=== PATIENT | male | born 1960 | race Caucasian/White ===

== ENCOUNTER → 2017-02-17 | Outpatient (REF) | payer BC ==
[~2017-02-17] MED LIST: ASPI81TA60 PO; CIPR-250 PO; DAKI1SOL TOP; FURO40TA2 PO; GLUC500T PO; KLOR1POW2 PO; LIPI20TA PO; LOSA25TA8 PO; NORCOTAB PO; TYLE650T30 PO; unasom PO
== END ==
LOC: M LAB REF 09:08
PROVIDERS: ATTEND Podiatrist
DX: L97.512 Non-pressure chronic ulcer of other part of right foot with fat layer exposed (principal)

== ENCOUNTER → 2017-03-29 | Outpatient (REF) | payer BC | LOC: M LAB REF 17:45 | PROVIDERS: ATTEND Podiatrist | DX: E11.42 Type 2 diabetes mellitus with diabetic polyneuropathy (principal); E11.621 Type 2 diabetes mellitus with foot ulcer; L97.819 Non-pressure chronic ulcer of other part of right lower leg with unspecified severity ==

== ENCOUNTER → 2017-03-30 | Outpatient (CLI) | payer BC ==
[2017-03-30 10:32] LABS: MEAN CORPUSCULAR HEMOGLOBIN 32.2 pg (27.0-33.0); MEAN CORPUSCULAR HGB CONC 34.4 g/dl (32.0-36.5); MEAN CORPUSCULAR VOLUME 93.7 fl (80.0-96.0); RED CELL DISTRIBUTION WIDTH 13.2 % (11.5-14.5); WHITE BLOOD COUNT 9.3 K/mm3 (4.0-10.0)
[2017-03-30 12:12] LABS: ALBUMIN 3.5 GM/DL (3.2-5.2); ALBUMIN/GLOBULIN RATIO 1.03 (1.00-1.93); ALKALINE PHOSPHATASE 91 U/L (45-117); ALT/SGPT 31 U/L (12-78); ANION GAP 8 MEQ/L (8-16); AST/SGOT 16 U/L (15-37); BILIRUBIN,TOTAL 0.5 MG/DL (0.2-1.0); BLOOD UREA NITROGEN 6 MG/DL (7-18); CALCIUM LEVEL 8.8 MG/DL (8.5-10.1); CARBON DIOXIDE LEVEL 27 MEQ/L (21-32); CHLORIDE LEVEL 103 MEQ/L (98-107); CHOLESTEROL LEVEL 174 MG/DL (<200); CREATININE FOR GFR 0.64 MG/DL (0.70-1.30); GLOMERULAR FILTRATION RATE > 60.0 (>56); GLUCOSE, FASTING 98 MG/DL (70-105); POTASSIUM SERUM 4.3 MEQ/L (3.5-5.1); SODIUM LEVEL 138 MEQ/L (136-145); TOTAL PROTEIN 6.9 GM/DL (6.4-8.2); TRIGLYCERIDES LEVEL 100 MG/DL (<150)
--- NOTE | 2017-03-31 02:20 | REP ---
Clinical: Hypertension . Comparison: 05/08/2013 . Technique: PA and lateral. Findings: The mediastinum and cardiac silhouette are normal. The lung murphy are clear and without acute consolidation, effusion, or pneumothorax. The skeletal structures are intact and normal. Impression: 1. No acute cardiopulmonary process. Signed by Anupam Savage MD 03/31/2017 02:11 A
--- NOTE | 2017-04-01 00:48 | ECGEPIP ---
Stationary ECG Study [facility] Test Date: 2017-03-30 Pat Name: JOHN CARRENO Department: Room: - Gender: M Video Specialist: GILL : 1960 Requested By: Lyle Damon Order Number: [id number] Reading MD: Sam Manzanares Measurements Intervals [place] Rate: 84 P: MD: 0 QRS: 79 QRSD: 104 T: 45 QT: 404 QTc: 479 Interpretive Statements ATRIAL FIBRILLATION WITH ABERRANT CONDUCTION OR VENTRICULAR PREMATURE COMPLEXES ABNORMAL RHYTHM ECG Compared to the last 2 tracings in the system, no significant changes Electronically Signed On 04-01-2017 0:48:45 EDT by Sam Manzanares
== END ==
LOC: M LAB 09:20
PROVIDERS: ATTEND Family Medicine
DX: I10 Essential (primary) hypertension (principal); N40.0 Benign prostatic hyperplasia without lower urinary tract symptoms; E03.9 Hypothyroidism, unspecified; R94.31 Abnormal electrocardiogram [ECG] [EKG]

== ENCOUNTER 2017-05-14 12:34 | Day surgery (SDC) | payer BC ==
[2017-05-14] MEDS ORDERED: PROPOFOL 200 MG/20 ML VIAL As Ordered ONE (13:13)
[2017-05-14] MEDS ORDERED: LIDOCAINE 2% INJ 100 MG/5 ML SDV (FOR ANES.) As Ordered ONE (13:13)
[2017-05-14] MEDS ORDERED: MIDAZOLAM INJ 2 MG/2 ML VIAL (J2250) As Ordered ONE (13:13)
[2017-05-14] MEDS ORDERED: fentaNYL 100 MCG/2 ML INJECTION (J3010) As Ordered ONE (13:14)
[2017-05-14] MEDS ORDERED: PRAV40TA2 PO (13:25)
[2017-05-14] MEDS ORDERED: SILV50CR TOP (13:25)
[2017-05-14] MEDS ORDERED: MELO7.5T7 PO (13:25)
[2017-05-14] MEDS ORDERED: ELIQ5TAB PO (13:25)
[2017-05-14] MEDS ORDERED: POTA1TAB21 PO (13:25)
[2017-05-14] MEDS ORDERED: METF500T13 PO (13:25)
[2017-05-14 13:27] LABS: MEAN CORPUSCULAR HEMOGLOBIN 32.2 pg (27.0-33.0); MEAN CORPUSCULAR HGB CONC 34.4 g/dl (32.0-36.5); MEAN CORPUSCULAR VOLUME 93.7 fl (80.0-96.0); RED CELL DISTRIBUTION WIDTH 13.6 % (11.5-14.5); WHITE BLOOD COUNT 10.9 K/mm3 (4.0-10.0)
[2017-05-14] MEDS ORDERED: AUGM875T28 PO (13:32)
[2017-05-14 13:41] LABS: ANION GAP 9 MEQ/L (8-16); BLOOD UREA NITROGEN 11 MG/DL (7-18); CALCIUM LEVEL 9.4 MG/DL (8.5-10.1); CARBON DIOXIDE LEVEL 25 MEQ/L (21-32); CHLORIDE LEVEL 106 MEQ/L (98-107); GLOMERULAR FILTRATION RATE > 60.0 (>56); GLUCOSE, FASTING 102 MG/DL (70-105); POTASSIUM SERUM 4.2 MEQ/L (3.5-5.1); SODIUM LEVEL 140 MEQ/L (136-145)
[2017-05-14] MEDS ORDERED: LIDOCAINE 2% MDV 20 ML VIAL As Ordered ONE (14:16)
[2017-05-14] MEDS ORDERED: ROPIvacaine 0.5% 30 ML INJECTION (J2795) As Ordered ONE (14:16)
[2017-05-14] MEDS ORDERED: BACITRACIN PWD 50,000 UNITS VIAL As Ordered ONE (14:16)
[2017-05-14] MEDS ORDERED: NEOSPORIN GU IRRIG 20 ML VIAL As Ordered ONE (14:17)
[2017-05-14] MEDS ORDERED: VANCOMYCIN HCL 500 MG/10 ML VIAL (J3370) As Ordered ONE (14:46)
[2017-05-14] MEDS ORDERED: ONDANSETRON 4MG/2ML VIAL (J2405) As Ordered ONE (14:51)
[2017-05-14] MEDS ORDERED: PERCOCET 5MG/325MG TAB PO PRN (15:45)
[2017-05-14 16:05] VITALS: BP 132/88
--- NOTE | 2017-05-14 17:00 | REP ---
HISTORY: Followup. COMPARISON: 03/22/2014 Since the last examination, amputation of the 2nd digit has been performed from the mid proximal phalanx. Chronic changes are seen involving the right foot, which are stable from the prior exam. There is a plantar calcaneal heel spur, status quo. The edge of the surgerized proximal phalanx is smooth. There is expected postoperative soft tissue swelling. IMPRESSION: As above. Signed by Cam Day DO 05/19/2017 04:24 P
--- NOTE | 2017-05-16 11:19 | RO ---
DATE OF PROCEDURE: 05/14/2017 PREPROCEDURE DIAGNOSIS: Osteomyelitis second toe right foot. POSTPROCEDURE DIAGNOSIS: Osteomyelitis second toe right foot. PROCEDURE: Partial second toe amputation right foot. SURGEON: Ross Garcia DPM PARTS DEPARTMENT SUPERVISOR: None. ANESTHESIA: HEMOSTASIS: None. IMPLANTABLES: None. DESCRIPTION OF PROCEDURE: On 05/14/2017, this 56-year-old male was taken from his hospital room to the operating room and placed on the operating room table in a supine position. Following the induction of IV sedation, local and regional anesthesia, the right lower extremity was prepped and draped in the usual aseptic manner. Attention was directed to the patient's second toe of the right foot where there was noted to be a significant mallet toe deformity with an ulcer with exposed bone on the distal aspect of the second toe. At this time, a fish mouth incision was placed over the proximal interphalangeal joint of the second toe and the toe was disarticulated. Exposure was down to the proximal phalanx and utilizing a power saw an osteotomy was performed at the shaft of the proximal phalanx. This was removed. All bleeders were electrocoagulated as encountered. The wound was flushed with 1 liter of vancomycin solution and the toe was closed with #3-0 nylon suture in a simple interrupted type fashion. Attention was directed towards bandaging where a sterile compressive bandage was applied consisting of Adaptic, 4x4s, 4x4 splints, Ez, Kerlix and Coban. The patient having apparently tolerated the surgical procedure well was taken from the OR to the recovery room with vital signs stable and the patient afebrile for further monitoring by the anesthesia department. All surgical specimens removed during the operative procedure were sent to pathology for gross and microscopic examination and a bone culture was performed of the distal phalanx.
== END 2017-05-14 16:10 | disposition home or self-care (01) ==
LOC: M SDC 12:34
PROVIDERS: ATTEND Podiatrist
DX: M86.9 Osteomyelitis, unspecified (principal); I10 Essential (primary) hypertension; E78.4 Other hyperlipidemia; E11.9 Type 2 diabetes mellitus without complications; E66.9 Obesity, unspecified; I48.91 Unspecified atrial fibrillation; I73.9 Peripheral vascular disease, unspecified
CPT/HCPCS: 28825; 36415; 73630; 80048; 85027; 87070; 87075; 87077; 87186; 88305; J0690; J2250; J2405; J2795; J3010; J3370

== ENCOUNTER → 2017-06-25 | Outpatient (REF) | payer BC ==
[~2017-06-25] MED LIST changes: +AUGM875T28 PO; +ELIQ5TAB PO; +MELO7.5T7 PO; +METF500T13 PO; +POTA1TAB21 PO; +PRAV40TA2 PO; +SILV50CR TOP
[2017-06-25 16:35] LABS: MEAN CORPUSCULAR HEMOGLOBIN 31.5 pg (27.0-33.0); MEAN CORPUSCULAR HGB CONC 33.3 g/dl (32.0-36.5); MEAN CORPUSCULAR VOLUME 94.4 fl (80.0-96.0); WHITE BLOOD COUNT 8.8 K/mm3 (4.0-10.0)
[2017-06-25 17:27] LABS: ANION GAP 9 MEQ/L (8-16); BLOOD UREA NITROGEN 11 MG/DL (7-18); CALCIUM LEVEL 9.3 MG/DL (8.5-10.1); CARBON DIOXIDE LEVEL 28 MEQ/L (21-32); CHLORIDE LEVEL 97 MEQ/L (98-107); CREATININE FOR GFR 0.84 MG/DL (0.70-1.30); GLOMERULAR FILTRATION RATE > 60.0 (>56); GLUCOSE, FASTING 79 MG/DL (70-105); SODIUM LEVEL 134 MEQ/L (136-145)
== END ==
LOC: M LAB REF 16:15
PROVIDERS: ATTEND Surgery
DX: E11.621 Type 2 diabetes mellitus with foot ulcer (principal); L97.422 Non-pressure chronic ulcer of left heel and midfoot with fat layer exposed

== ENCOUNTER → 2017-07-29 | Outpatient (CLI) | payer BC ==
[~2017-07-29] MED LIST changes: +PROHANCE 279.3MG/ML 15ML VIAL (A9576) As Ordered ONE; +PROHANCE 279.3MG/ML 5ML VIAL (A9576) As Ordered ONE
--- NOTE | 2017-08-06 17:02 | REP ---
MRI BILATERAL FEET WITH AND WITHOUT CONTRAST: TECHNIQUE: Multiple sequence obtained in the axial, coronal, and sagittal planes prior to and following the intravenous administration of 20 mL of gadolinium, first on 07/29/2017 for the right foot and then 07/30/2017 for the left foot. The study is presented to me for interpretation on 08/06/2017. Edema is seen in the soft-tissues of the right heel with enhancement compatible with cellulitis. There is no underlying abscess collection. There is no underlying osteomyelitis. There are arthritic changes of the tibiotalar joint with subchondral marrow edema predominately at the posterior aspect of the joint. Arthritic changes and subchondral marrow edema is also seen at the joint between the navicular and adjacent medial cuneiform and also between the cuboid and adjacent bases of the 4th and 5th metatarsals. No occult fracture is seen of the right foot. Mild joint fluid is seen at the ankle. Plantar tendon appears intact. I do not see evidence of a tendon or ligament tear. There is an oval area in the region of the flexor tendon of the 2nd metatarsal which is hypointense on T1 and T2 weighted images and does not significantly enhance. This measures approximately 2.1 x 0.9 cm and probably represents a fibroma along the tendon sheath. There is mild surrounding enhancement likely indicating inflammatory change and surrounding tissues. On the left there is similar edema in soft tissues adjacent to the inferior calcaneus at the site of a reported ulcer. There is also mild enhancement compatible with cellulitis. There is no underlying abscess collection or osteomyelitis. There are arthritic changes at the tibiotalar joint with subchondral marrow edema at the posterior margin of the joint and similarly arthritic changes and subchondral marrow edema is seen at the calcaneal cuboid joint as well as the joint between the cuboid and base of the 4th metatarsal as well as at the other tarsal/metatarsal joints and at the joint between the navicular and medial cuneiform. Oval cyst in the first metatarsal is unchanged since prior MRI of 04/16/2014. There is no occult fracture. There is no joint effusion or fluid collection. No ganglion cyst is seen. There is no evidence of a tendon or ligament tear. IMPRESSION: Soft tissue ulcers at the heels bilaterally with findings of cellulitis. No underlying abscess or osteomyelitis. There are arthritic changes in both feet as discussed above with no evidence of occult fracture and no evidence of tendon or ligament tear. Signed by Claus Boudreaux MD 08/06/2017 05:54 P
== END ==
LOC: M RAD 12:36
PROVIDERS: ATTEND Surgery
DX: E11.621 Type 2 diabetes mellitus with foot ulcer (principal); L97.412 Non-pressure chronic ulcer of right heel and midfoot with fat layer exposed; L97.422 Non-pressure chronic ulcer of left heel and midfoot with fat layer exposed

== ENCOUNTER → 2017-09-17 | Outpatient (REF) | payer BC ==
[~2017-09-17] MED LIST changes: -PROHANCE 279.3MG/ML 15ML VIAL (A9576) As Ordered ONE; -PROHANCE 279.3MG/ML 5ML VIAL (A9576) As Ordered ONE
== END ==
LOC: M LAB REF 16:44
PROVIDERS: ATTEND Surgery
DX: E11.621 Type 2 diabetes mellitus with foot ulcer (principal); L97.409 Non-pressure chronic ulcer of unspecified heel and midfoot with unspecified severity

== ENCOUNTER → 2018-12-28 | Outpatient (CLI) | payer BC ==
[~2018-12-28] MED LIST changes: +LOSA25TA14 PO; -LOSA25TA8 PO
--- NOTE | 2018-12-29 02:45 | REP ---
Clinical: Pain. Technique: Neutral and frog lateral views of the left hip. Findings: Advanced osteoarthritic degenerative changes include joint space obliteration, subchondral heterogeneity and cystic changes, obtuse remodelling of the acetabular contour and femoral head along with broad-based osteophyte formation and periarticular calcifications. Impression: Advanced osteoarthritic degenerative changes. Electronically Signed by Anupam Savage MD 12/29/2018 02:37 A
== END ==
LOC: M RAD 09:01
PROVIDERS: ATTEND Family Medicine
DX: M25.552 Pain in left hip (principal); M16.12 Unilateral primary osteoarthritis, left hip

== ENCOUNTER → 2019-03-07 | Outpatient (CLI) | payer BC ==
[~2019-03-07] MED LIST changes: +ASPI81TA26 PO; +HYDR-3715 PO; +MOBI4TAB PO; -NORCOTAB PO
[2019-03-07 10:51] LABS: HEMATOCRIT 41.9 % (42.0-52.0); HEMOGLOBIN 14.7 g/dl (13.5-17.5); MEAN CORPUSCULAR HGB CONC 35.1 g/dl (32.0-36.5); MEAN CORPUSCULAR VOLUME 93.9 fl (80.0-96.0); PLATELET COUNT, AUTOMATED 256 10^3/uL (150-450); RED BLOOD COUNT 4.46 10^6/uL (4.30-6.10); WHITE BLOOD COUNT 8.2 10^3/uL (4.0-10.0)
[2019-03-07 10:52] LABS: APPEARANCE, URINE CLEAR (CLEAR); BACTERIA, URINE AUTO NEGATIVE (NEGATIVE); BILIRUBIN, URINE AUTO NEGATIVE (NEGATIVE); BLOOD, URINE BLOOD 1+ (NEGATIVE); COLOR, URINE YELLOW (YELLOW); GLUCOSE, URINE (UA) AUTO NEGATIVE (NEGATIVE); KETONE, URINE AUTO NEGATIVE (NEGATIVE); LEUKOCYTE ESTERASE, URINE AUTO NEGATIVE (NEGATIVE); NITRITE, URINE AUTO NEGATIVE (NEGATIVE); PROTEIN, URINE AUTO NEGATIVE (NEGATIVE); RBC, URINE AUTO 3 /HPF (0-3); SPECIFIC GRAVITY URINE AUTO 1.006 (1.002-1.035); SQUAMOUS EPITHELIAL CELL UR AU 0 /HPF (0-6); UROBILINOGEN, URINE AUTO 0.2 mg/dL (0.0-2.0); WBC, URINE AUTO 0 /HPF (0-3)
[2019-03-07 11:03] LABS: INR 1.01; PROTHROMBIN TIME 13.4 SECONDS (12.1-14.4)
[2019-03-07 11:10] LABS: HEMOGLOBIN A1c 5.6 %
[2019-03-07 11:31] LABS: ALBUMIN 3.9 GM/DL (3.2-5.2); ALT/SGPT 23 U/L (12-78); BILIRUBIN,TOTAL 0.7 MG/DL (0.2-1.0); BLOOD UREA NITROGEN 6 MG/DL (7-18); CALCIUM LEVEL 8.9 MG/DL (8.5-10.1); CARBON DIOXIDE LEVEL 27 MEQ/L (21-32); CHLORIDE LEVEL 98 MEQ/L (98-107); CHOLESTEROL LEVEL 189 MG/DL (<200); CHOLESTEROL RISK RATIO 2.076 (<5); CREATININE FOR GFR 0.74 MG/DL (0.70-1.30); GLOMERULAR FILTRATION RATE > 60.0 (>56); GLUCOSE, FASTING 106 MG/DL (70-100); HDL CHOLESTEROL 91 MG/DL (>40); LDL CHOLESTEROL 86 MG/DL (<100); NON-HDL-C 98 MG/DL; POTASSIUM SERUM 4.5 MEQ/L (3.5-5.1); SODIUM LEVEL 136 MEQ/L (136-145); TOTAL PROTEIN 7.9 GM/DL (6.4-8.2); TRIGLYCERIDES LEVEL 62 MG/DL (<150)
[2019-03-07 11:32] LABS: PROSTATIC SPECIFIC AG MONITOR 2.83 NG/ML (< 4.00)
--- NOTE | 2019-03-07 12:11 | REP ---
Chest two views HISTORY: Preop Comparison: 03/30/2017 The lungs are clear. The heart is normal in size. The pulmonary vasculature is normal in appearance. The bony structure is intact. IMPRESSION: No acute disease. Electronically Signed by Thanh Sheehan MD 03/07/2019 12:03 P
--- NOTE | 2019-03-08 09:39 | ECGEPIP ---
[facility] Test Date: 2019-03-07 Pat Name: JOHN CARRENO Department: Room: - Gender: Male Slots Manager: ISAEL : 1960 Requested By: Lyle Damon Order Number: [id number] Reading MD: Mich Brooks Measurements Intervals [place] Rate: 92 P: HI: -1 QRS: 83 QRSD: 99 T: 38 QT: 380 QTc: 470 Interpretive Statements ATRIAL FIBRILLATION ABNORMAL RHYTHM ECG No aberrant conduction compared with 03/30/2017. Electronically Signed on 03-08-2019 9:39:02 EDT by Mich Brooks
== END ==
LOC: M LAB 10:09
PROVIDERS: ATTEND Family Medicine
DX: Z01.818 Encounter for other preprocedural examination (principal); I10 Essential (primary) hypertension; E11.9 Type 2 diabetes mellitus without complications; I48.91 Unspecified atrial fibrillation

== ENCOUNTER → 2019-06-21 | Outpatient (CLI) | payer BC ==
[2019-06-21 10:42] LABS: HEMOGLOBIN 13.5 g/dl (13.5-17.5); MEAN CORPUSCULAR HEMOGLOBIN 31.8 pg (27.0-33.0); MEAN CORPUSCULAR HGB CONC 35.5 g/dl (32.0-36.5); MEAN CORPUSCULAR VOLUME 89.6 fl (80.0-96.0); PLATELET COUNT, AUTOMATED 205 10^3/uL (150-450); RED BLOOD COUNT 4.24 10^6/uL (4.30-6.10); WHITE BLOOD COUNT 7.4 10^3/uL (4.0-10.0)
[2019-06-21 11:02] LABS: INR 1.3; PROTHROMBIN TIME 15.9 SECONDS (11.8-14.0)
[2019-06-21 11:11] LABS: ERYTHROCYTE SEDIMENTATION RATE 13 mm/hr (0-20)
[2019-06-21 11:16] LABS: ALBUMIN 4.3 GM/DL (3.2-5.2); ALT/SGPT 42 U/L (12-78); BLOOD UREA NITROGEN 8 MG/DL (7-18); CALCIUM LEVEL 9.4 MG/DL (8.5-10.1); CARBON DIOXIDE LEVEL 24 MEQ/L (21-32); CHLORIDE LEVEL 94 MEQ/L (98-107); GLOMERULAR FILTRATION RATE > 60.0 (>56); GLUCOSE, FASTING 106 MG/DL (70-100); POTASSIUM SERUM 4.4 MEQ/L (3.5-5.1); SODIUM LEVEL 130 MEQ/L (136-145); TOTAL PROTEIN 7.8 GM/DL (6.4-8.2)
--- NOTE | 2019-06-21 12:09 | REP ---
CHEST X-RAY: Two views. HISTORY: Pain in the left hip. COMPARISON STUDY: March 07, 2019. FINDINGS: There is a levoconvex curvature in the thoracic spine unchanged. There are old healed left-sided rib fractures unchanged. The lungs are symmetrically aerated and clear. Heart is not enlarged. The pulmonary vasculature is not increased. No other significant bony abnormality is seen. IMPRESSION: Levoconvex thoracic spine curvature and old healed left-sided rib fractures. Otherwise no acute disease. Electronically Signed by Martín Phelps MD 06/21/2019 03:25 P
== END ==
LOC: M LAB 09:33
PROVIDERS: ATTEND Family Medicine
DX: Z01.818 Encounter for other preprocedural examination (principal); M17.12 Unilateral primary osteoarthritis, left knee; E11.9 Type 2 diabetes mellitus without complications; I51.9 Heart disease, unspecified; Z87.81 Personal history of (healed) traumatic fracture; M53.84 Other specified dorsopathies, thoracic region

== ENCOUNTER 2019-07-12 05:47 | Inpatient (IN) | payer BC ==
--- NOTE | 2019-07-03 11:23 | HPE ---
DATE OF VISIT: 07/03/2019 DATE OF ANTICIPATED ADMISSION: 07/12/2019 ATTENDING PHYSICIAN: Dr. Coles CHIEF COMPLAINT: Left hip pain and stiffness. HISTORY: The patient is a 58-year-old male with progressively worsening left hip pain and stiffness. He has failed to improve with conservative measures. He continues to have symptoms with weightbearing activities and activities of daily living. He has consented for an elective left whole hip arthroplasty with Dr. Coles for his continued symptoms. Medical optimization completed with Dr. Marisol Mendez. CURRENT MEDICATIONS: Eliquis 5 mg twice daily, metformin 500 mg twice daily, potassium 8 mEq daily, pravastatin 40 mg daily, metoprolol 25 mg daily, furosemide 20 mg daily. ALLERGIES: There are no known drug allergies. CHRONIC MEDICAL CONDITIONS: Atrial fibrillation, diabetes, hyperlipidemia, hypertension. PAST SURGICAL HISTORY: Toe amputation. SOCIAL HISTORY: The patient is a former smoker and denies alcohol use. He is single and lives alone. REVIEW OF SYSTEMS: The patient denies fevers, chills, nausea, vomiting or diarrhea. Denies chest pain, shortness of breath, lightheadedness, dizziness or headaches. He denies any recent upper respiratory or urinary tract infection symptoms. Denies any abdominal pain. He does continue to have left hip pain with weightbearing activities and activities of daily living. PHYSICAL EXAMINATION: General: Well-nourished, well-developed male in no apparent distress. He is alert, oriented and cooperative. Mood and affect are appropriate. Vital signs: Height 71 inches, weight 257.6 pounds, temperature 97.9, blood pressure 140/60, respirations 15, heart rate 71. Heart: Irregularly irregular rate and rhythm consistent with diagnosis of atrial fibrillation. Lungs: Clear to auscultation bilaterally. Abdomen: Bowel sounds are present. Abdomen is soft and nontender to palpation. Musculoskeletal: Left hip exhibits no erythema, edema or ecchymosis. There is tenderness to palpation along the lateral hip and groin. He does have significantly decreased internal rotation and flexion at the hip. Strength of the left lower extremity is 4+/5 secondary to pain. Calf is soft, nontender to palpation with no palpable cords noted. He is neurovascularly intact distally. LABORATORY DATA: Chest x-ray - No acute disease. Left hip x-ray notable for end-stage degenerative changes. EKG atrial fibrillation. Complete blood count WBC is 7.4, RBC is decreased at 4.24, hemoglobin 13.5, hematocrit decreased at 38, platelets 205. Comprehensive metabolic profile fasting glucose elevated at 106, BUN 8, creatinine 0.70, GFR greater than 60, sodium decreased at 130, potassium 4.4, chloride decreased at 94, CO2 24, anion gap 12, calcium 9.4, AST elevated at 57, ALT 42, alkaline phosphatase 107, total bilirubin 1, total protein 7.8, albumin 4.3, albumin-globulin ratio 1.23, erythrocyte sedimentation rate 13. Prothrombin time elevated at 15.9, INR 1.30. IMPRESSION: Left hip degenerative arthritis with x-rays notable for end-stage degenerative changes. PLAN: The patient has consented for an elective left total hip arthroplasty with Dr. Coles for his continued symptoms. Medical optimization completed with Dr. Mendez. ADELINE
[2019-07-12] VITALS (8 sets, daily range): BP systolic 130–171; BP diastolic 70–98
[~2019-07-12] VITALS: Ht 180.3 cm; Wt 112.4 kg
[2019-07-12] MEDS ORDERED: LIDOCAINE 1% MDV 20ML VIAL SQ PRN (06:00)
[2019-07-12] MEDS ORDERED: ceFAZolin 2 GM/D5W 50 ML IV BAG (J0690 PER 500MG) As Ordered ONE (06:07)
[2019-07-12] MEDS ORDERED: LOPR1TAB6 PO (06:29)
[2019-07-12] MEDS ORDERED: EPINEPHrine INJ 1 MG/ML 1ML VIAL As Ordered ONE (06:53)
[2019-07-12] MEDS ORDERED: ceFAZolin 1GM INJ (J0690 PER 500MG) As Ordered ONE (06:53)
[2019-07-12] MEDS ORDERED: ACETAMINOPHEN 500 MG TAB PO ONE (07:00)
[2019-07-12] MEDS ORDERED: LR 1,000 ML IV ONE (07:00)
[2019-07-12] MEDS ORDERED: ceFAZolin SOD 2 GM in IV 1 EA IV ONE (07:00)
[2019-07-12] MEDS ORDERED: LIDOCAINE 2% INJ 100 MG/5 ML SDV (FOR ANES.) As Ordered ONE (07:10)
[2019-07-12] MEDS ORDERED: fentaNYL 100 MCG/2 ML INJECTION (J3010) As Ordered ONE ×2 (07:10→10:48)
[2019-07-12] MEDS ORDERED: propofoL 200 MG/20 ML VIAL As Ordered ONE ×3 (07:10→09:31)
[2019-07-12] MEDS ORDERED: MIDAZOLAM INJ 2 MG/2 ML VIAL (J2250) As Ordered ONE (07:12)
[2019-07-12] MEDS ORDERED: BUPIVACAINE HCL 0.5% 30 ML VIAL As Ordered ONE (08:25)
[2019-07-12] MEDS ORDERED: ONDANSETRON 4MG/2ML VIAL (J2405) As Ordered ONE (08:26)
[2019-07-12] MEDS ORDERED: KETOROLAC 60 MG/2 ML VIAL (J1885) As Ordered ONE (08:26)
[2019-07-12] MEDS ORDERED: METOPROLOL TART 25 MG TABLET PO SCH (09:00)
[2019-07-12 10:47] LABS: HEMATOCRIT 34.2 % (42.0-52.0); HEMOGLOBIN 11.5 g/dl (13.5-17.5); MEAN CORPUSCULAR HGB CONC 33.6 g/dl (32.0-36.5); PLATELET COUNT, AUTOMATED 181 10^3/uL (150-450); RED BLOOD COUNT 3.49 10^6/uL (4.30-6.10); WHITE BLOOD COUNT 6.7 10^3/uL (4.0-10.0)
--- NOTE | 2019-07-12 10:48 | RO ---
DATE OF PROCEDURE: 07/12/2019 PREOPERATIVE DIAGNOSIS: Left hip degenerative arthritis. POSTOPERATIVE DIAGNOSIS: Left hip degenerative arthritis. PROCEDURE: Left total hip arthroplasty. SURGEON: Curt Coles MD PITTING MACHINE OPERATOR: Domi Lira PA-C ANESTHESIA: Spinal. IMPLANTS: Prosthesis was a size #9 Stephenson standard offset stem with a +5 neck and a 40 mm ball and a 60 mm acetabular cup with a 40 mm neutral polyethylene liner. SPECIMENS: Femoral head. ESTIMATED BLOOD LOSS: 200 mL. COMPLICATIONS: None. PROCEDURE: After antibiotics of were given intravenously preoperatively and a successful spinal anesthetic was induced, he was placed in a lateral decubitus position. The [place] hip positioner was utilized, down leg well padded especially the peroneal nerve, axillary roll utilized. The left hip area was then carefully prepped and draped in the usual sterile fashion. After appropriate time out, a longitudinal lateral incision was made for a direct lateral approach to the hip. Bovie cautery was used to coagulate crossing vessels down to the tensor fascia, which was divided in line of the skin incision. We then split the gluteus medius, anterior one-third and posterior two-third junction, and carefully dissected the tissues off the anterior aspect of the proximal femur as we eventually the dislocated the hip. The femoral head was noted to be very flattened and deformed, possibly related to some preexisting osteonecrosis and eventual collapse. A starter reamer was placed in the piriformis fossa followed by the canal finding reamer, then the lateralizing reamer, then we reamed up to a size 9. Femoral neck osteotomy performed, box osteotome utilized and then broached up to a size 9. We then exposed the acetabulum. He had a large amount of fibrotic tissue within the joint, which was debrided away, and then the labrum was very large and thickened, and that was debrided away. The acetabulum was worn superiorly. We began reaming starting a 52 mm down to the teardrop to try to bring the acetabulum back down to an anatomic position, then we expanded our reamers up to 59. The trial 60 fit very nicely, thus I used that sized cup. It was impacted using the extramedullary alignment jig to estimate our version and abduction. This was placed after we copiously pulsatile lavage irrigated out the joint as we did several times throughout the surgery. The central hole eliminator was placed, followed by the polyethylene and was noted to be well seated. We then placed the #9 broach after irrigating out the femoral canal, trialed with a +1.5 neck by 40. The hip was quite stable to flexion, internal rotation, extension and external rotation, but he had a bit of excessive soft tissue play. We trialed the +5 and his telescoping was minimized, appropriate sized neck length utilized. We then removed all the trial component, copiously irrigated out the femoral canal, placed the real #9 stem, dried the trunnion and placed the 40 mm x +5 ball and then reduced the hip after irrigating again. We closed the gluteus minimus and anterior hip capsule with interrupted #1 PDS sutures. The gluteus medius was repaired back anatomically with several interrupted #1 PDS sutures, irrigating between layers, closed the tensor fascia with a combination of #1 PDS sutures and a running #1 STRATAFIX. Irrigated again and closed the deep subdermal tissues with interrupted #2-0 PDS sutures, skin was carmen, covered by an Optifoam and dry sterile bulky dressing. He was then turned supine and transferred to the recovery room in stable condition. There were no intraoperative complications.
[2019-07-12] MEDS: fentaNYL 100 MCG/2 ML INJECTION (J3010) IV PRN ×4 (10:49→11:15)
[2019-07-12] MEDS ORDERED: ONDANSETRON 4MG/2ML VIAL (J2405) IV PRN (11:00)
[2019-07-12] MEDS ORDERED: ACETAMINOPHEN TAB 650MG DOSE (2X325MG) PO PRN (11:00)
[2019-07-12] MEDS ORDERED: LR 1,000 ML IV SCH (11:00)
[2019-07-12] MEDS ORDERED: METOCLOPRAMIDE INJ 10MG/2ML VIAL (J2765) IV PRN (11:00)
[2019-07-12] MEDS ORDERED: oxyCODONE 5MG TAB PO PRN (11:00)
[2019-07-12] MEDS ORDERED: FLEET ENEMA PR PRN (11:00)
[2019-07-12] MEDS ORDERED: METOPROLOL 5 MG/5 ML VIAL As Ordered ONE (11:06)
[2019-07-12 11:07] LABS: ALBUMIN 3.1 GM/DL (3.2-5.2); ALT/SGPT 27 U/L (12-78); BILIRUBIN,TOTAL 0.7 MG/DL (0.2-1.0); BLOOD UREA NITROGEN 4 MG/DL (7-18); CALCIUM LEVEL 8.8 MG/DL (8.5-10.1); CARBON DIOXIDE LEVEL 27 MEQ/L (21-32); CHLORIDE LEVEL 104 MEQ/L (98-107); CHOLESTEROL LEVEL 152 MG/DL (<200); CHOLESTEROL RISK RATIO 1.948 (<5); CREATININE FOR GFR 0.81 MG/DL (0.70-1.30); GLOMERULAR FILTRATION RATE > 60.0 (>56); GLUCOSE, FASTING 86 MG/DL (70-100); HDL CHOLESTEROL 78 MG/DL (>40); LDL CHOLESTEROL 57 MG/DL (<100); MAGNESIUM LEVEL 1.8 MG/DL (1.8-2.4); NON-HDL-C 74 MG/DL; POTASSIUM SERUM 3.9 MEQ/L (3.5-5.1); SODIUM LEVEL 139 MEQ/L (136-145); TOTAL PROTEIN 6.6 GM/DL (6.4-8.2); TRIGLYCERIDES LEVEL 83 MG/DL (<150)
[2019-07-12] MEDS ORDERED: METOPROLOL 5 MG/5 ML VIAL IV ONE (11:15)
[2019-07-12] MEDS ORDERED: oxyCODONE 5MG TAB As Ordered ONE (11:50)
[2019-07-12] MEDS ORDERED: GLUCOSE 4 GM CHEW TABLET PO PRN (12:00)
[2019-07-12] MEDS: HumaLOG INSULIN (NovoLOG) PER UNIT SC SCH ×3 (12:00→21:00)
[2019-07-12] MEDS ORDERED: DEXTROSE 50% 50 ML SYRINGE IV PRN (12:00)
[2019-07-12] MEDS ORDERED: GLUCAGON FOR INJ 1 MG VIAL (J1610) SC PRN (12:00)
[2019-07-12] MEDS ORDERED: amLODIPine 10 MG TAB PO ONE (12:30)
[2019-07-12] MEDS: METOPROLOL TART 25 MG TABLET PO SCH ×2 (12:39→19:57)
[2019-07-12] MEDS ORDERED: FUROSEMIDE 40 MG TAB PO ONE (13:00)
--- NOTE | 2019-07-12 13:04 | CR ---
DATE OF CONSULTATION: 07/12/2019 PRIMARY CARE PROVIDER: Dr. Marisol Mendez ESTATE CONSERVATOR: Hospitalist group. HISTORY: Martín Lechuga is seen postoperatively after a left total hip arthroplasty. His blood pressure was elevated postoperatively which he attributes to being anxious and "a bit excited" to have surgery done. When I saw him his blood pressure was 187/102. He tells us that he was told at his preop evaluation by his primary care provider to hold his antihypertensives for five days before surgery. The patient's preop evaluation by his primary care provider is handwritten and not all of it is legible. He appears to have a history of hypertension, atrial fibrillation, type 2 diabetes, arthritis. He had a preop evaluation by [facility], Dr. Manzanares. There is only one page of that evaluation in his chart. He was told to hold his Eliquis for three days before surgery, to continue beta-carie (metoprolol) and statin (pravastatin). HOME MEDICATIONS: Appears to be - Eliquis 5 mg twice a day - furosemide 40 mg daily - metformin 500 mg twice a day - Mobic 7.5 mg 1-2 daily - potassium chloride 8 mEq daily - pravastatin 40 mg daily - metoprolol tartrate 25 mg twice a day, last dose 07/08 FAMILY HISTORY: Noncontributory. SOCIAL HISTORY: Nonsmoker. Alcohol intake is moderate. ALLERGIES: None known. REVIEW OF SYSTEMS: No chest pain, shortness of breath, palpitations, syncope, (cut off), no rectal bleeding. PHYSICAL EXAMINATION: Vital signs per flow sheet. He is alert and conversant in no distress. HEENT pupils equal and reactive to light. Tympanic membranes and oropharynx benign. Neck no masses. Lungs clear. Heart regular without murmur. Abdomen soft, nontender, no masses. No peripheral edema. Preop labs were reviewed, they look unremarkable. IMPRESSION: 1. Hypertension. I think he is withdrawing from his beta-carie. He understood to hold his beta-carie for five days before surgery, which is contradictory to his shipyard painter's evaluation and standard medical care. He received IV Lopressor in the recovery room. We will restart his Lopressor 25 mg twice a day. I asked to have the first dose given now. We will follow his blood pressure today. 2. Hyperlipidemia. Begin pravastatin 40 mg daily. 3. History of atrial fibrillation. Rate is controlled with the metoprolol. Post op anticoagulation as per orthopedics. I would like to restart his Eliquis 5 mg twice a day tomorrow if okay with orthopedics. 4. Type 2 diabetes. Probably can restart his metformin tomorrow once his renal function is assured. I have ordered some labs for tomorrow. He will be on a sliding scale of insulin with fingerstick blood sugars today; tomorrow he should be okay to restart his metformin depending on his renal function and p.o. intake. The hospitalist will be following the patient postoperatively.
--- NOTE | 2019-07-12 13:25 | REP ---
LEFT HIP, THREE VIEWS: Three views of the left hip performed. Total hip prosthesis appears to be in good position. Acetabular prosthesis interface with bone is not well visualized. Otherwise structures are well aligned. Metallic skin carmen are seen laterally. Electronically Signed by Claus Boudreaux MD 07/13/2019 09:03 A
[2019-07-12] MEDS: ceFAZolin SOD 2 GM in IV 1 EA IV SCH ×2 (14:14→19:56)
[2019-07-12] MEDS ORDERED: HYDROMORPHONE HCL 0.5 MG/ 0.5 ML SYRINGE (J1170 PER 1) IV PRN ×2 (14:45)
[2019-07-12] MEDS ORDERED: PERCOCET 5MG/325MG TAB PO PRN (17:45)
[2019-07-12] MEDS: PERCOCET 5MG/325MG TAB PO PRN ×2 (18:09→22:14)
[2019-07-13] MEDS: ceFAZolin SOD 2 GM in IV 1 EA IV SCH (02:13)
[2019-07-13] MEDS: PERCOCET 5MG/325MG TAB PO PRN ×6 (02:16→22:34)
[2019-07-13 02:36] VITALS: BP 136/96
[2019-07-13 06:40] LABS: HEMATOCRIT 34.3 % (42.0-52.0); HEMOGLOBIN 11.8 g/dl (13.5-17.5); MEAN CORPUSCULAR HEMOGLOBIN 32.7 pg (27.0-33.0); MEAN CORPUSCULAR HGB CONC 34.4 g/dl (32.0-36.5); PLATELET COUNT, AUTOMATED 157 10^3/uL (150-450); RED BLOOD COUNT 3.61 10^6/uL (4.30-6.10); WHITE BLOOD COUNT 8.7 10^3/uL (4.0-10.0)
[2019-07-13 07:02] LABS: BLOOD UREA NITROGEN 5 MG/DL (7-18); CALCIUM LEVEL 8.9 MG/DL (8.5-10.1); CARBON DIOXIDE LEVEL 28 MEQ/L (21-32); CHLORIDE LEVEL 96 MEQ/L (98-107); CREATININE FOR GFR 0.79 MG/DL (0.70-1.30); GLOMERULAR FILTRATION RATE > 60.0 (>56); GLUCOSE, FASTING 108 MG/DL (70-100); POTASSIUM SERUM 3.5 MEQ/L (3.5-5.1); SODIUM LEVEL 131 MEQ/L (136-145)
[2019-07-13 07:15] VITALS: BP 139/96
[2019-07-13] MEDS: HumaLOG INSULIN (NovoLOG) PER UNIT SC SCH ×4 (07:30→21:00)
[2019-07-13] MEDS: metFORMIN (GLUCOPHAGE) 500 MG TAB PO SCH ×2 (08:00→17:20)
[2019-07-13] MEDS ORDERED: PERC5TAB12 PO (08:21)
[2019-07-13] MEDS ORDERED: POTASSIUM CHLORIDE 10 MEQ SR TABLET PO SCH (09:00)
[2019-07-13] MEDS: MOM 30ML SUSPENSION UDC PO SCH (09:26)
[2019-07-13] MEDS: MIRALAX *UNIT DOSE* 17GM PACKET PO SCH (09:27)
[2019-07-13] MEDS: APIXABAN 5 MG TAB (ELIQUIS) PO SCH ×2 (09:28→21:36)
[2019-07-13] MEDS: SENOKOT S TAB PO SCH ×2 (09:28→21:36)
[2019-07-13] MEDS: PRAVASTATIN 20 MG TAB PO SCH (09:28)
[2019-07-13] MEDS: METOPROLOL TART 25 MG TABLET PO SCH ×2 (09:29→21:36)
[2019-07-13] MEDS: FUROSEMIDE 40 MG TAB PO SCH (09:30)
[2019-07-13 10:00] VITALS: BP 142/96
--- NOTE | 2019-07-13 13:16 | IPN ---
DATE OF SERVICE: 07/13/2019 SUBJECTIVE: The patient complains of pain at the hip 2 hours after Percocet has been given and says that it has ached for the next 3-4 hours. The patient also complains of lack of privacy. Unable to urinate since staff has been checking up on him frequently. He is requesting for the door to be closed and to be given some time to get to sleep and be able to urinate in private without interruption. He otherwise denies any chest pain, pressure, or tightness, lightheadedness, dizziness, changes in vision despite blood pressure that was ranging 171 to 211 yesterday. With the patient's pain controlled and being able to speak his mind, his blood pressure has decreased. Glucose level today has been adequate at 116-132. Metformin and insulin have been held. The patient lives alone and has no family at home. He is anxious to be discharged, but pain is uncontrolled, unable to fully work with therapy due to pain. Physical therapy (PT) will return again later this morning in order to work with him further. PHYSICAL EXAMINATION: Vital signs: Temperature 97.7, pulse 90, respiratory rate 20, blood pressure 139/96, 98% on room air. Generally, the patient is gregarious, cooperative. Speaks in tangents. No respiratory distress. No jugular venous distention (JVD) or thyromegaly. Lungs are clear to auscultation. No wheezing, rales, or rhonchi. Heart: S1, S2, sinus rhythm. Abdomen is soft, nontender, nondistended. Positive bowel sounds. Extremities: Postoperative left hip. Able to wiggle his toes. Skin color is pink, warm to touch. Postoperative changes. No pitting edema. LABORATORY DATA: White count 8, hemoglobin 11, hematocrit 34, platelet count 157. Sodium 131, potassium 3.5, chloride 96, bicarbonate 28, BUN 5, creatinine 0.79, glucose of 108. Hip x-ray 07/12/2019: Total hip prosthesis in good position. Acetabular prosthesis interface with bone is not well visualized. Metallic skin carmen are seen laterally. ASSESSMENT AND PLAN: A 58-year-old male with history of atrial fibrillation (AFib), hypertension, diabetes, obesity, body mass index (BMI) of 34.6, status post left total hip arthroplasty. CURRENT ISSUES: 1. Uncontrolled hypertension secondary to anxiety, as well as pain. The patient has been given Percocet 1-2 tablets for pain control. PT is working with him. We have asked nursing to provide more privacy for the patient, as this gets him anxious. He is continued on metoprolol 25 twice a day. 2. Left hip arthroplasty. Postoperative management per orthopedic surgery. Pain control. Bowel regimen. Physical therapy. Acute rehabilitation unit (ARU) screen. He is continued on Eliquis for deep venous thrombosis (DVT) prophylaxis. 3. Atrial fibrillation. Rate controlled on metoprolol. Currently, on Eliquis twice a day. 4. Type 2 diabetes. On metformin and insulin sliding scale. Currently, controlled. Insulin had to be held for coverage. 5. Dyslipidemia. On pravastatin.
[2019-07-13 14:00] VITALS: BP 139/97
[2019-07-13 21:26] VITALS: BP 155/93
[2019-07-14] MEDS: PERCOCET 5MG/325MG TAB PO PRN ×2 (05:20→10:07)
[2019-07-14 06:03] VITALS: BP 140/92
[2019-07-14 06:05] LABS: HEMATOCRIT 35.6 % (42.0-52.0); HEMOGLOBIN 12.4 g/dl (13.5-17.5); MEAN CORPUSCULAR HEMOGLOBIN 33.5 pg (27.0-33.0); MEAN CORPUSCULAR HGB CONC 34.8 g/dl (32.0-36.5); MEAN CORPUSCULAR VOLUME 96.2 fl (80.0-96.0); PLATELET COUNT, AUTOMATED 227 10^3/uL (150-450); WHITE BLOOD COUNT 12.9 10^3/uL (4.0-10.0)
[2019-07-14 06:44] LABS: BLOOD UREA NITROGEN 8 MG/DL (7-18); CARBON DIOXIDE LEVEL 27 MEQ/L (21-32); CHLORIDE LEVEL 97 MEQ/L (98-107); CREATININE FOR GFR 0.82 MG/DL (0.70-1.30); GLOMERULAR FILTRATION RATE > 60.0 (>56); GLUCOSE, FASTING 105 MG/DL (70-100); POTASSIUM SERUM 3.5 MEQ/L (3.5-5.1); SODIUM LEVEL 131 MEQ/L (136-145)
[2019-07-14] MEDS: metFORMIN (GLUCOPHAGE) 500 MG TAB PO SCH (07:28)
[2019-07-14] MEDS: HumaLOG INSULIN (NovoLOG) PER UNIT SC SCH ×3 (07:28→12:12)
[2019-07-14] MEDS: MIRALAX *UNIT DOSE* 17GM PACKET PO SCH (08:59)
[2019-07-14] MEDS: SENOKOT S TAB PO SCH (08:59)
[2019-07-14] MEDS: APIXABAN 5 MG TAB (ELIQUIS) PO SCH (08:59)
[2019-07-14] MEDS: MOM 30ML SUSPENSION UDC PO SCH (08:59)
[2019-07-14 09:00] VITALS: BP 156/79
[2019-07-14] MEDS: FUROSEMIDE 40 MG TAB PO SCH (09:00)
[2019-07-14] MEDS: PRAVASTATIN 20 MG TAB PO SCH (09:00)
[2019-07-14 09:03] VITALS: BP 156/79
[2019-07-14] MEDS: METOPROLOL TART 25 MG TABLET PO SCH (09:03)
--- NOTE | 2019-07-17 10:10 | DSES ---
DATE OF ADMISSION: 07/12/2019 DATE OF DISCHARGE: 07/14/2019 ATTENDING PHYSICIAN: Dr. Coles ADMISSION DIAGNOSIS: Left hip degenerative arthritis. OTHER DIAGNOSES: Atrial fibrillation, diabetes, hyperlipidemia, hypertension. DISCHARGE DIAGNOSIS: Left hip degenerative arthritis, status post left total hip arthroplasty. HISTORY: The patient is a 58-year-old male that had progressively worsening left hip pain and stiffness. He failed to improve with conservative measures. He continued to have symptoms with weightbearing activities and activities of daily living. The patient consented for an elective left total hip arthroplasty with Dr. Coles for his continued symptoms. OPERATION PERFORMED: Left total hip arthroplasty. The patient underwent a left total hip arthroplasty under spinal anesthesia, which was uneventful. His hospital course was without complication, and he was up with physical therapy per their protocol, weightbearing as tolerated on the left lower extremity. The patient was discharged on oral pain medications and will resume his preoperative medications and diet. The patient will use his thromboembolic deterrent stockings and take his anticoagulant as directed to prevent deep venous thrombosis. The patient will follow up in our office in 12-14 days for wound check and staple removal. He is encouraged to contact our office sooner if there is any increase in pain, redness, drainage, numbness or tingling in the extremity, fever greater than 101 degrees or any other concerns. Please see medical record for additional details. ADELINE
== END 2019-07-14 14:13 | disposition home or self-care (01) | DRG 301 ==
LOC: M OR 05:47 → M MS5PR 13:40
PROVIDERS: ADMIT Orthopaedic Surgery; ATTEND Orthopaedic Surgery
PROC: 0SRB02Z Replacement of Left Hip Joint with Metal on Polyethylene Synthetic Substitute, Open Approach (ICD-10-PCS; principal; 2019-07-12 07:30)
DX: M16.12 Unilateral primary osteoarthritis, left hip (principal); I10 Essential (primary) hypertension; I48.91 Unspecified atrial fibrillation; E11.9 Type 2 diabetes mellitus without complications; E78.5 Hyperlipidemia, unspecified; Z79.01 Long term (current) use of anticoagulants; Z79.84 Long term (current) use of oral hypoglycemic drugs; Z79.899 Other long term (current) drug therapy; E66.9 Obesity, unspecified; Z68.34 Body mass index [BMI] 34.0-34.9, adult

== ENCOUNTER → 2019-07-26 | Outpatient (REF) | payer BC ==
[~2019-07-26] MED LIST changes: +LOPR1TAB6 PO; +PERC5TAB12 PO
[2019-07-26 14:25] LABS: BASO # 0.1 10^3/uL (0.0-0.2); BASO % 0.7 % (0.0-1.0); EOS # 0.1 10^3/uL (0.0-0.5); HEMATOCRIT 30.7 % (42.0-52.0); HEMOGLOBIN 10.1 g/dl (13.5-17.5); LYMPH # 1.4 10^3/uL (1.5-5.0); LYMPH % 12.8 % (24.0-44.0); MEAN CORPUSCULAR HEMOGLOBIN 31.7 pg (27.0-33.0); MEAN CORPUSCULAR HGB CONC 32.9 g/dl (32.0-36.5); MEAN CORPUSCULAR VOLUME 96.2 fl (80.0-96.0); MONO # 1.1 10^3/uL (0.0-0.8); MONO % 10.1 % (0.0-5.0); NEUTROPHILS # 8.3 10^3/uL (1.5-8.5); NEUTROPHILS % 74.9 % (36.0-66.0); PLATELET COUNT, AUTOMATED 431 10^3/uL (150-450); RED BLOOD COUNT 3.19 10^6/uL (4.30-6.10); WHITE BLOOD COUNT 11.1 10^3/uL (4.0-10.0)
[2019-07-26 15:08] LABS: ERYTHROCYTE SEDIMENTATION RATE 67 mm/hr (0-20)
== END ==
LOC: M LABDRAW1 10:53
PROVIDERS: ATTEND Physician Assistant Surgical
DX: Z96.642 Presence of left artificial hip joint (principal)

== ENCOUNTER → 2019-08-02 | Outpatient (REF) | payer BC ==
[2019-08-02 16:09] LABS: BASO # 0.1 10^3/uL (0.0-0.2); BASO % 0.8 % (0.0-1.0); EOS # 0.1 10^3/uL (0.0-0.5); EOS % 1.5 % (0.0-3.0); HEMATOCRIT 30.6 % (42.0-52.0); HEMOGLOBIN 9.9 g/dl (13.5-17.5); LYMPH # 1.6 10^3/uL (1.5-5.0); LYMPH % 20.7 % (24.0-44.0); MEAN CORPUSCULAR HEMOGLOBIN 30.8 pg (27.0-33.0); MEAN CORPUSCULAR HGB CONC 32.4 g/dl (32.0-36.5); MEAN CORPUSCULAR VOLUME 95.3 fl (80.0-96.0); MONO # 0.7 10^3/uL (0.0-0.8); MONO % 8.4 % (0.0-5.0); NEUTROPHILS # 5.4 10^3/uL (1.5-8.5); NEUTROPHILS % 68.2 % (36.0-66.0); PLATELET COUNT, AUTOMATED 363 10^3/uL (150-450); RED BLOOD COUNT 3.21 10^6/uL (4.30-6.10); WHITE BLOOD COUNT 7.9 10^3/uL (4.0-10.0)
[2019-08-02 16:55] LABS: ERYTHROCYTE SEDIMENTATION RATE 56 mm/hr (0-20)
== END ==
LOC: M LABDRAW1 13:19
PROVIDERS: ATTEND Physician Assistant Surgical
DX: Z47.1 Aftercare following joint replacement surgery (principal)

== ENCOUNTER 2022-08-13 13:11 | Inpatient (IN) | payer BC, OTHER ==
[~2022-08-13] VITALS: Ht 182.9 cm; Wt 116.8 kg
[~2022-08-13 13:11] MED LIST changes: +LOSA25TA13 PO; -LOSA25TA14 PO
[2022-08-13 14:18] LABS: HEMATOCRIT 21.8 % (42.0-52.0); HEMOGLOBIN 7.7 g/dl (13.5-17.5); LYMPH # 1.2 10^3/uL (1.5-5.0); LYMPH % 16.3 % (24.0-44.0); MEAN CORPUSCULAR HEMOGLOBIN 34.5 pg (27.0-33.0); MEAN CORPUSCULAR HGB CONC 35.3 g/dl (32.0-36.5); MEAN CORPUSCULAR VOLUME 97.8 fl (80.0-96.0); MONO # 0.5 10^3/uL (0.0-0.8); MONO % 6.2 % (2.0-8.0); NEUTROPHILS # 5.9 10^3/uL (1.5-8.5); NEUTROPHILS % 77.1 % (36.0-66.0); PLATELET COUNT, AUTOMATED 181 10^3/uL (150-450); RED BLOOD COUNT 2.23 10^6/uL (4.30-6.10); WHITE BLOOD COUNT 7.6 10^3/uL (4.0-10.0)
[2022-08-13 14:30] LABS: INR 1.34; PROTHROMBIN TIME 16.8 SECONDS (12.5-14.5)
[2022-08-13 14:31] LABS: PARTIAL THROMBOPLASTIN TIME 34.8 SECONDS (24.8-34.2)
[2022-08-13 14:53] LABS: RSV AMPLIFICATION NEGATIVE (NEGATIVE)
[2022-08-13 15:24] LABS: ERYTHROCYTE SEDIMENTATION RATE 65 mm/hr (0-20)
[2022-08-13 15:25] LABS: ACETAMINOPHEN LEVEL < 2.0 UG/ML (10.0-30.0); ALBUMIN 2.4 GM/DL (3.2-5.2); ALT/SGPT 19 U/L (12-78); BILIRUBIN,DIRECT 0.9 MG/DL (0.0-0.2); BILIRUBIN,TOTAL 1.9 MG/DL (0.2-1.0); BLOOD UREA NITROGEN 23 MG/DL (7-18); C REACTIVE PROTEIN QUANTITATIV 4.15 MG/DL (0.00-0.30); CALCIUM LEVEL 8.2 MG/DL (8.8-10.2); CARBON DIOXIDE LEVEL 21 MEQ/L (21-32); CHLORIDE LEVEL 89 MEQ/L (98-107); CK-MB VALUE MASS 3.5 NG/ML (<3.6); CREATININE FOR GFR 3.55 MG/DL (0.70-1.30); ETHYL ALCOHOL (ETHANOL) < 0.003 % (0.000-0.010); GLOMERULAR FILTRATION RATE 18.8 (>49); GLUCOSE, FASTING 91 MG/DL (70-100); LIPASE 45 U/L (73-393); MB/CK RELATIVE INDEX 3.21 (< OR =4); POTASSIUM SERUM 4.1 MEQ/L (3.5-5.1); SODIUM LEVEL 123 MEQ/L (136-145); TOTAL PROTEIN 6.7 GM/DL (6.4-8.2)
[2022-08-13 17:19] LABS: OSMOLALITY URINE 202 MOSM/KG (50-1400)
[2022-08-13 17:49] LABS: AMPHETAMINES LEVEL URINE NEGATIVE (NEGATIVE); BARBITURATES URINE NEGATIVE (NEGATIVE); BENZODIAZEPINES URINE NEGATIVE (NEGATIVE); CANNABINOIDS URINE POSITIVE (NEGATIVE); COCAINE METABOLITE URINE NEGATIVE (NEGATIVE); METHADONE URINE NEGATIVE (NEGATIVE); OPIATES URINE POSITIVE (NEGATIVE); PHENCYCLIDINE URINE NEGATIVE (NEGATIVE)
[2022-08-13 17:58] LABS: SODIUM,RANDOM URINE < 10 MEQ/L
[2022-08-13] MEDS ORDERED: ECOT81TA5 PO (18:26)
[2022-08-13] MEDS ORDERED: HOME MED LIST COMPLETE! XX SCH (18:30)
[2022-08-13 18:35] VITALS: BP 134/60
[2022-08-13 18:50] VITALS: BP 153/88
[2022-08-13] MEDS ORDERED: GLUCAGON INJ 1MG VIAL SC PRN (18:55)
[2022-08-13] MEDS ORDERED: GLUCOSE 4GM CHEW TABLET PO PRN (18:55)
[2022-08-13] MEDS ORDERED: DEXTROSE 50% 50 ML SYRINGE IV PRN (18:55)
[2022-08-13 19:50] VITALS: BP 141/91
[2022-08-13] MEDS ORDERED: LORazepam 2 MG TAB PO PRN (20:15)
[2022-08-13 20:50] VITALS: BP 151/86
[2022-08-13] MEDS ORDERED: cefTRIAXone SOD 1 GM in D5W MINI-BAG PLUS 50 ML IV SCH (21:00)
[2022-08-13 22:09] LABS: VENOUS PH 7.449 UNITS (7.330-7.430)
[2022-08-13 22:10] LABS: VENOUS BASE EXCESS -2.2 (-2.0-2.0); VENOUS HCO3 21.3 MEQ/L (23.0-27.0); VENOUS O2 SATURATION 98.1 % (60.0-80.0); VENOUS PARTIAL PRESSURE CO2 31.4 mmHg (38.0-50.0); VENOUS PARTIAL PRESSURE O2 113.1 mmHg (30.0-50.0); VENOUS STANDARD HCO3 22.6 MEQ/L; VENOUS TOTAL CO2 22.2 MEQ/L (24.0-28.0)
[2022-08-13 22:22] VITALS: BP 152/75
[2022-08-13] MEDS: INSULIN LISPRO (NovoLOG) PER UNIT SC SCH ×2 (22:46→23:13)
[2022-08-13 23:04] LABS: CALCIUM LEVEL 7.8 MG/DL (8.8-10.2); CREATININE FOR GFR 3.53 MG/DL (0.70-1.30); GLOMERULAR FILTRATION RATE 18.9 (>49); MAGNESIUM LEVEL 1.9 MG/DL (1.8-2.4)
[2022-08-13] MEDS: THIAMINE 100 MG TAB PO SCH (23:12)
[2022-08-13] MEDS: HEPARIN SOD (PORCINE) 5000UNITS/ML 1ML VIAL/SYRINGE SQ SCH (23:25)
[2022-08-14] VITALS (18 sets, daily range): BP systolic 108–146; BP diastolic 59–90
[2022-08-14] MEDS: INSULIN LISPRO (NovoLOG) PER UNIT SC SCH ×3 (05:29→17:28)
[2022-08-14] MEDS: OCTREOTIDE ACETATE 100MCG/ML VIAL **SC ADMINISTRATION ONLY SC SCH ×3 (06:00→22:19)
[2022-08-14] MEDS: HEPARIN SOD (PORCINE) 5000UNITS/ML 1ML VIAL/SYRINGE SQ SCH ×3 (06:21→20:57)
[2022-08-14 06:52] LABS: ALBUMIN 2.5 GM/DL (3.2-5.2); BILIRUBIN,TOTAL 2.1 MG/DL (0.2-1.0); CALCIUM LEVEL 7.9 MG/DL (8.8-10.2); CHOLESTEROL RISK RATIO 3.333 (<5); CREATININE FOR GFR 3.73 MG/DL (0.70-1.30); GLOMERULAR FILTRATION RATE 17.8 (>49); HEMOGLOBIN 7.2 g/dl (13.5-17.5); MAGNESIUM LEVEL 1.9 MG/DL (1.8-2.4); MEAN CORPUSCULAR HEMOGLOBIN 33.3 pg (27.0-33.0); MEAN CORPUSCULAR HGB CONC 34.6 g/dl (32.0-36.5); MEAN CORPUSCULAR VOLUME 96.3 fl (80.0-96.0); PLATELET COUNT, AUTOMATED 118 10^3/uL (150-450); POTASSIUM SERUM 3.9 MEQ/L (3.5-5.1); RED BLOOD COUNT 2.16 10^6/uL (4.30-6.10); TOTAL PROTEIN 5.6 GM/DL (6.4-8.2); WHITE BLOOD COUNT 4.6 10^3/uL (4.0-10.0)
[2022-08-14 06:56] LABS: HEMATOCRIT 20.8 % (42.0-52.0)
[2022-08-14] MEDS: MIDODRINE 5 MG TAB PO SCH ×3 (08:00→17:32)
[2022-08-14] MEDS: FOLIC ACID 1MG TAB PO SCH (09:00)
[2022-08-14] MEDS: MULTIVITAMINS/MINERALS THERAP 1 TAB PO SCH (09:00)
[2022-08-14] MEDS: THIAMINE 100 MG TAB PO SCH ×2 (09:00→21:31)
[2022-08-14 09:16] LABS: FOLATE 3.9 NG/ML
[2022-08-14 11:23] LABS: SOURCE, BODY FLUID ASCITES
[2022-08-14 11:24] LABS: APPEARANCE, BODY FLUID HAZY (CLEAR); ASCITES FL COLOR YELLOW (COLORLESS)
[2022-08-14] MEDS: NS 1,000 ML IV SCH ×2 (12:00→23:54)
[2022-08-14 12:26] LABS: SOURCE, BODY FLUID ALBUMIN ASCITES; SOURCE, BODY FLUID GLUCOSE ASCITES; SOURCE, BODY FLUID TOT PROTEIN ASCITES; TOTAL PROTEIN, BODY FLUID 2.8 G/DL (NOT ESTABLISHED)
[2022-08-14 13:03] LABS: COMPLEMENT C3 58 MG/DL (90-180); COMPLEMENT C4 13 MG/DL (10-40)
[2022-08-14 14:19] LABS: HEPATITIS B SURFACE ANTIGEN NEGATIVE (NEGATIVE); HIV 1&2 SCREEN CENTAUR NEGATIVE (NEGATIVE)
[2022-08-14] MEDS: cefTRIAXone SOD 2 GM in D5W MINI-BAG PLUS 50 ML IV SCH (22:50)
[2022-08-15] VITALS (17 sets, daily range): BP systolic 96–127; BP diastolic 53–82
[2022-08-15 05:54] LABS: MEAN CORPUSCULAR HEMOGLOBIN 34.1 pg (27.0-33.0); MEAN CORPUSCULAR HGB CONC 35.8 g/dl (32.0-36.5); MEAN CORPUSCULAR VOLUME 95.1 fl (80.0-96.0); PLATELET COUNT, AUTOMATED 118 10^3/uL (150-450); RED BLOOD COUNT 1.85 10^6/uL (4.30-6.10); WHITE BLOOD COUNT 5.4 10^3/uL (4.0-10.0)
[2022-08-15 05:56] LABS: HEMATOCRIT 17.6 % (42.0-52.0); HEMOGLOBIN 6.3 g/dl (13.5-17.5)
[2022-08-15] MEDS: INSULIN LISPRO (NovoLOG) PER UNIT SC SCH ×4 (06:00→16:52)
[2022-08-15] MEDS: HEPARIN SOD (PORCINE) 5000UNITS/ML 1ML VIAL/SYRINGE SQ SCH (06:00)
[2022-08-15] MEDS: OCTREOTIDE ACETATE 100MCG/ML VIAL **SC ADMINISTRATION ONLY SC SCH ×3 (06:30→21:34)
[2022-08-15 06:41] LABS: ALBUMIN 2.5 GM/DL (3.2-5.2); ALT/SGPT 14 U/L (12-78); BILIRUBIN,TOTAL 1.1 MG/DL (0.2-1.0); BLOOD UREA NITROGEN 32 MG/DL (7-18); CALCIUM LEVEL 7.7 MG/DL (8.8-10.2); CARBON DIOXIDE LEVEL 24 MEQ/L (21-32); CHLORIDE LEVEL 92 MEQ/L (98-107); CREATININE FOR GFR 3.78 MG/DL (0.70-1.30); GLOMERULAR FILTRATION RATE 17.5 (>49); GLUCOSE, FASTING 143 MG/DL (70-100); MAGNESIUM LEVEL 1.9 MG/DL (1.8-2.4); POTASSIUM SERUM 3.6 MEQ/L (3.5-5.1); SODIUM LEVEL 124 MEQ/L (136-145); TOTAL PROTEIN 5.2 GM/DL (6.4-8.2)
[2022-08-15] MEDS: THIAMINE 100 MG TAB PO SCH ×2 (09:19→21:34)
[2022-08-15] MEDS: MIDODRINE 5 MG TAB PO SCH ×3 (09:19→15:04)
[2022-08-15] MEDS: FOLIC ACID 1MG TAB PO SCH (09:19)
[2022-08-15] MEDS: MULTIVITAMINS/MINERALS THERAP 1 TAB PO SCH (09:19)
[2022-08-15 15:10] LABS: ANTINUCLEAR ANTIBODIES DIRECT Negative (Negative)
[2022-08-15 16:40] LABS: HEMATOCRIT 23.1 % (42.0-52.0); HEMOGLOBIN 8.1 g/dl (13.5-17.5)
[2022-08-15] MEDS: cefTRIAXone SOD 2 GM in D5W MINI-BAG PLUS 50 ML IV SCH (21:34)
[2022-08-16] VITALS: BP 105/63
[2022-08-16 04:00] VITALS: BP 108/59
[2022-08-16] MEDS: OCTREOTIDE ACETATE 100MCG/ML VIAL **SC ADMINISTRATION ONLY SC SCH ×3 (05:20→21:15)
[2022-08-16] MEDS: INSULIN LISPRO (NovoLOG) PER UNIT SC SCH ×5 (06:00→23:22)
[2022-08-16 08:11] VITALS: BP 100/56
[2022-08-16] MEDS: MIDODRINE 5 MG TAB PO SCH ×3 (08:41→16:36)
[2022-08-16] MEDS: FOLIC ACID 1MG TAB PO SCH (08:41)
[2022-08-16] MEDS: MULTIVITAMINS/MINERALS THERAP 1 TAB PO SCH (08:41)
[2022-08-16] MEDS: THIAMINE 100 MG TAB PO SCH (08:41)
[2022-08-16 10:01] LABS: HEMATOCRIT 23.2 % (42.0-52.0); HEMOGLOBIN 8.1 g/dl (13.5-17.5); MEAN CORPUSCULAR HEMOGLOBIN 32.7 pg (27.0-33.0); MEAN CORPUSCULAR HGB CONC 34.9 g/dl (32.0-36.5); MEAN CORPUSCULAR VOLUME 93.5 fl (80.0-96.0); PLATELET COUNT, AUTOMATED 116 10^3/uL (150-450); RED BLOOD COUNT 2.48 10^6/uL (4.30-6.10); WHITE BLOOD COUNT 6.9 10^3/uL (4.0-10.0)
[2022-08-16 10:40] LABS: ALBUMIN 2.4 GM/DL (3.2-5.2); BILIRUBIN,TOTAL 1.6 MG/DL (0.2-1.0); CALCIUM LEVEL 7.7 MG/DL (8.8-10.2); CREATININE FOR GFR 3.46 MG/DL (0.70-1.30); GLOMERULAR FILTRATION RATE 19.4 (>49); MAGNESIUM LEVEL 1.9 MG/DL (1.8-2.4); POTASSIUM SERUM 3.4 MEQ/L (3.5-5.1); TOTAL PROTEIN 5.2 GM/DL (6.4-8.2)
[2022-08-16 11:46] VITALS: BP 100/61
[2022-08-16] MEDS ORDERED: POTASSIUM CHLORIDE 10MEQ SR TABLET PO ONE (14:30)
[2022-08-16 16:00] VITALS: BP 99/58
[2022-08-16 20:00] VITALS: BP 107/59
[2022-08-16] MEDS: cefTRIAXone SOD 2 GM in D5W MINI-BAG PLUS 50 ML IV SCH (21:15)
[2022-08-17] VITALS: BP 128/74
[2022-08-17 04:00] VITALS: BP 100/65
[2022-08-17] MEDS: INSULIN LISPRO (NovoLOG) PER UNIT SC SCH ×3 (05:11→17:40)
[2022-08-17] MEDS: OCTREOTIDE ACETATE 100MCG/ML VIAL **SC ADMINISTRATION ONLY SC SCH ×3 (05:11→22:25)
[2022-08-17 07:08] LABS: HEMATOCRIT 25.5 % (42.0-52.0); HEMOGLOBIN 8.8 g/dl (13.5-17.5); MEAN CORPUSCULAR HEMOGLOBIN 32.8 pg (27.0-33.0); MEAN CORPUSCULAR HGB CONC 34.5 g/dl (32.0-36.5); MEAN CORPUSCULAR VOLUME 95.1 fl (80.0-96.0); PLATELET COUNT, AUTOMATED 103 10^3/uL (150-450); RED BLOOD COUNT 2.68 10^6/uL (4.30-6.10); WHITE BLOOD COUNT 7.7 10^3/uL (4.0-10.0)
[2022-08-17 07:45] LABS: ALBUMIN 2.4 GM/DL (3.2-5.2); BILIRUBIN,TOTAL 1.1 MG/DL (0.2-1.0); CALCIUM LEVEL 8.1 MG/DL (8.8-10.2); CREATININE FOR GFR 2.99 MG/DL (0.70-1.30); GLOMERULAR FILTRATION RATE 22.9 (>49); MAGNESIUM LEVEL 1.7 MG/DL (1.8-2.4); POTASSIUM SERUM 3.6 MEQ/L (3.5-5.1); TOTAL PROTEIN 5.4 GM/DL (6.4-8.2)
[2022-08-17 08:00] VITALS: BP 99/64
[2022-08-17] MEDS: FOLIC ACID 1MG TAB PO SCH (08:51)
[2022-08-17] MEDS: MULTIVITAMINS/MINERALS THERAP 1 TAB PO SCH (08:52)
[2022-08-17] MEDS: MIDODRINE 5 MG TAB PO SCH ×3 (08:52→16:09)
[2022-08-17 09:08] LABS: HEPATITIS B SURFACE ANTIGEN NEGATIVE (NEGATIVE)
[2022-08-17 09:28] LABS: HEPATITIS C VIRUS ABY INDEX < 0.0 INDEX (<0.8); HIV 1&2 SCREEN CENTAUR NEGATIVE (NEGATIVE)
[2022-08-17] MEDS ORDERED: SPIRONOLACTONE 25 MG TAB PO ONE (09:40)
[2022-08-17] MEDS ORDERED: MAG SULF 1GM/100ML (MAG RUN) 1 GM in IV 1 EA IV ONE (10:00)
[2022-08-17 12:15] VITALS: BP 97/56
[2022-08-17] MEDS: SPIRONOLACTONE 25 MG TAB PO SCH (16:09)
[2022-08-17 16:41] VITALS: BP 119/59
[2022-08-17 19:43] VITALS: BP 117/56
[2022-08-17] MEDS: cefTRIAXone SOD 2 GM in D5W MINI-BAG PLUS 50 ML IV SCH (20:30)
[2022-08-18 04:00] VITALS: BP 107/58
[2022-08-18] MEDS: INSULIN LISPRO (NovoLOG) PER UNIT SC SCH ×4 (06:00→17:41)
[2022-08-18 06:10] LABS: HEMATOCRIT 24.2 % (42.0-52.0); HEMOGLOBIN 8.2 g/dl (13.5-17.5); MEAN CORPUSCULAR HEMOGLOBIN 32.4 pg (27.0-33.0); MEAN CORPUSCULAR HGB CONC 33.9 g/dl (32.0-36.5); MEAN CORPUSCULAR VOLUME 95.7 fl (80.0-96.0); PLATELET COUNT, AUTOMATED 122 10^3/uL (150-450); RED BLOOD COUNT 2.53 10^6/uL (4.30-6.10); WHITE BLOOD COUNT 7.4 10^3/uL (4.0-10.0)
[2022-08-18] MEDS: OCTREOTIDE ACETATE 100MCG/ML VIAL **SC ADMINISTRATION ONLY SC SCH (06:25)
[2022-08-18 06:46] LABS: ALBUMIN 2.3 GM/DL (3.2-5.2); BILIRUBIN,TOTAL 1.2 MG/DL (0.2-1.0); CALCIUM LEVEL 7.9 MG/DL (8.8-10.2); CREATININE FOR GFR 2.47 MG/DL (0.70-1.30); GLOMERULAR FILTRATION RATE 28.6 (>49); MAGNESIUM LEVEL 1.8 MG/DL (1.8-2.4); POTASSIUM SERUM 3.8 MEQ/L (3.5-5.1); TOTAL PROTEIN 5.3 GM/DL (6.4-8.2)
[2022-08-18 08:00] VITALS: BP 101/61
[2022-08-18] MEDS: MULTIVITAMINS/MINERALS THERAP 1 TAB PO SCH (08:59)
[2022-08-18] MEDS: MIDODRINE 5 MG TAB PO SCH ×3 (09:00→17:48)
[2022-08-18] MEDS: SPIRONOLACTONE 25 MG TAB PO SCH (09:00)
[2022-08-18] MEDS: FOLIC ACID 1MG TAB PO SCH (09:00)
[2022-08-18] MEDS ORDERED: SPIRONOLACTONE 50 MG TAB PO ONE ×2 (12:00→12:30)
[2022-08-18 16:00] VITALS: BP 118/65
[2022-08-18] MEDS: SPIRONOLACTONE 50 MG TAB PO SCH (17:48)
[2022-08-18 20:00] VITALS: BP 129/60
[2022-08-18] MEDS: cefTRIAXone SOD 2 GM in D5W MINI-BAG PLUS 50 ML IV SCH (21:13)
[2022-08-19 04:00] VITALS: BP 106/62
[2022-08-19 05:37] LABS: HEMATOCRIT 22.1 % (42.0-52.0); HEMOGLOBIN 7.7 g/dl (13.5-17.5); MEAN CORPUSCULAR HGB CONC 34.8 g/dl (32.0-36.5); MEAN CORPUSCULAR VOLUME 94.8 fl (80.0-96.0); PLATELET COUNT, AUTOMATED 112 10^3/uL (150-450); RED BLOOD COUNT 2.33 10^6/uL (4.30-6.10); WHITE BLOOD COUNT 7.1 10^3/uL (4.0-10.0)
[2022-08-19] MEDS: INSULIN LISPRO (NovoLOG) PER UNIT SC SCH ×5 (06:00→21:00)
[2022-08-19 06:19] LABS: ALBUMIN 2.2 GM/DL (3.2-5.2); CALCIUM LEVEL 7.8 MG/DL (8.8-10.2); CREATININE FOR GFR 2.22 MG/DL (0.70-1.30); GLOMERULAR FILTRATION RATE 32.3 (>49); MAGNESIUM LEVEL 1.7 MG/DL (1.8-2.4); POTASSIUM SERUM 3.5 MEQ/L (3.5-5.1); TOTAL PROTEIN 5.6 GM/DL (6.4-8.2)
[2022-08-19 07:47] VITALS: BP 119/79
[2022-08-19] MEDS ORDERED: MAG SULF 1GM/100ML (MAG RUN) 1 GM in IV 1 EA IV ONE (08:00)
[2022-08-19] MEDS: MULTIVITAMINS/MINERALS THERAP 1 TAB PO SCH (08:41)
[2022-08-19] MEDS: MIDODRINE 5 MG TAB PO SCH ×3 (08:41→16:43)
[2022-08-19] MEDS: FOLIC ACID 1MG TAB PO SCH (08:42)
[2022-08-19] MEDS: SPIRONOLACTONE 50 MG TAB PO SCH ×2 (08:42→16:43)
[2022-08-19 11:50] VITALS: BP 129/84
[2022-08-19] MEDS: HEPARIN SOD (PORCINE) 5000UNITS/ML 1ML VIAL/SYRINGE SQ SCH ×2 (14:00→21:35)
[2022-08-19] MEDS ORDERED: LIDOCAINE 1% MDV 20ML VIAL As Ordered ONE (14:39)
[2022-08-19 16:11] LABS: ASCITES FL COLOR YELLOW (COLORLESS); SOURCE, BODY FLUID ASCITES
[2022-08-19 16:12] LABS: APPEARANCE, BODY FLUID CLEAR (CLEAR)
[2022-08-19 16:31] VITALS: BP 117/80
[2022-08-19 17:48] LABS: SOURCE, BODY FLUID ALBUMIN ASCITES; SOURCE, BODY FLUID GLUCOSE ASCITES; SOURCE, BODY FLUID TOT PROTEIN ASCITES; TOTAL PROTEIN, BODY FLUID 2.5 G/DL (NOT ESTABLISHED)
[2022-08-19 20:00] VITALS: BP 129/61
[2022-08-19] MEDS: cefTRIAXone SOD 2 GM in D5W MINI-BAG PLUS 50 ML IV SCH (21:35)
[2022-08-20 04:00] VITALS: BP 130/90
[2022-08-20 04:07] LABS: HEPATITIS A IgG TOTAL Positive (Negative); HEPATITIS B CORE ANTIBODY IGG Negative (Negative); HEPATITIS C QUANTITATION HCV Not Detected IU/mL (.)
[2022-08-20] MEDS: HEPARIN SOD (PORCINE) 5000UNITS/ML 1ML VIAL/SYRINGE SQ SCH ×3 (05:11→21:14)
[2022-08-20] MEDS ORDERED: CIPROFLOXACIN 500MG TABLET PO SCH ×2 (06:00→09:00)
[2022-08-20 07:28] LABS: HEMATOCRIT 22.2 % (42.0-52.0); HEMOGLOBIN 7.7 g/dl (13.5-17.5); MEAN CORPUSCULAR HGB CONC 34.7 g/dl (32.0-36.5); MEAN CORPUSCULAR VOLUME 95.3 fl (80.0-96.0); PLATELET COUNT, AUTOMATED 100 10^3/uL (150-450); RED BLOOD COUNT 2.33 10^6/uL (4.30-6.10); WHITE BLOOD COUNT 8.1 10^3/uL (4.0-10.0)
[2022-08-20 08:00] VITALS: BP 126/69
[2022-08-20] MEDS: MIDODRINE 5 MG TAB PO SCH ×3 (08:00→16:25)
[2022-08-20 08:04] LABS: ALBUMIN 2.6 GM/DL (3.2-5.2); BILIRUBIN,TOTAL 1.1 MG/DL (0.2-1.0); CALCIUM LEVEL 8.2 MG/DL (8.8-10.2); CREATININE FOR GFR 2.17 MG/DL (0.70-1.30); GLOMERULAR FILTRATION RATE 33.2 (>49); MAGNESIUM LEVEL 1.8 MG/DL (1.8-2.4); POTASSIUM SERUM 3.8 MEQ/L (3.5-5.1); TOTAL PROTEIN 6.4 GM/DL (6.4-8.2)
[2022-08-20] MEDS: INSULIN LISPRO (NovoLOG) PER UNIT SC SCH ×4 (08:39→20:08)
[2022-08-20] MEDS: FOLIC ACID 1MG TAB PO SCH (08:40)
[2022-08-20] MEDS: SPIRONOLACTONE 50 MG TAB PO SCH ×2 (08:40→16:25)
[2022-08-20] MEDS: MULTIVITAMINS/MINERALS THERAP 1 TAB PO SCH (08:40)
[2022-08-20] MEDS: LACTULOSE 20 GM/30 ML SYRUP UD PO SCH ×3 (09:00→21:00)
[2022-08-20] MEDS ORDERED: TORSEMIDE 20 MG TAB PO ONE (10:30)
[2022-08-20] MEDS: MIRALAX *UNIT DOSE* 17GM PACKET PO SCH (12:36)
[2022-08-20] MEDS: FLUTICASONE PROP 0.05% NASAL SPRAY 16 GM (FLONASE) NARES SCH ×2 (12:37→21:14)
[2022-08-20] MEDS ORDERED: TORSEMIDE 20 MG TAB PO SCH (17:00)
[2022-08-20 20:00] VITALS: BP 130/60
[2022-08-21 04:00] VITALS: BP 126/68
[2022-08-21] MEDS: HEPARIN SOD (PORCINE) 5000UNITS/ML 1ML VIAL/SYRINGE SQ SCH (05:25)
[2022-08-21 05:56] LABS: HEMOGLOBIN 7.2 g/dl (13.5-17.5); MEAN CORPUSCULAR HEMOGLOBIN 32.7 pg (27.0-33.0); MEAN CORPUSCULAR HGB CONC 34.4 g/dl (32.0-36.5); PLATELET COUNT, AUTOMATED 107 10^3/uL (150-450); WHITE BLOOD COUNT 7.7 10^3/uL (4.0-10.0)
[2022-08-21 05:58] LABS: HEMATOCRIT 20.9 % (42.0-52.0)
[2022-08-21] MEDS ORDERED: CIPROFLOXACIN 500MG TABLET PO SCH (06:00)
[2022-08-21 06:33] LABS: ALBUMIN 2.6 GM/DL (3.2-5.2); BILIRUBIN,TOTAL 1.3 MG/DL (0.2-1.0); CALCIUM LEVEL 8.1 MG/DL (8.8-10.2); CREATININE FOR GFR 2.1 MG/DL (0.70-1.30); GLOMERULAR FILTRATION RATE 34.5 (>49); MAGNESIUM LEVEL 1.7 MG/DL (1.8-2.4); TOTAL PROTEIN 6.4 GM/DL (6.4-8.2)
[2022-08-21] MEDS: INSULIN LISPRO (NovoLOG) PER UNIT SC SCH (07:30)
[2022-08-21] MEDS ORDERED: MAG SULF 1GM/100ML (MAG RUN) 1 GM in IV 1 EA IV ONE (07:40)
[2022-08-21 07:49] VITALS: BP 123/68
[2022-08-21] MEDS: MIRALAX *UNIT DOSE* 17GM PACKET PO SCH (09:00)
[2022-08-21] MEDS ORDERED: TORSEMIDE (DEMADEX) 50 MG PER 1/2 TAB PO SCH (09:00)
[2022-08-21] MEDS: LACTULOSE 20 GM/30 ML SYRUP UD PO SCH (09:00)
[2022-08-21] MEDS: MULTIVITAMINS/MINERALS THERAP 1 TAB PO SCH (09:27)
[2022-08-21] MEDS: MIDODRINE 5 MG TAB PO SCH (09:28)
[2022-08-21] MEDS: FOLIC ACID 1MG TAB PO SCH (09:28)
[2022-08-21] MEDS: SPIRONOLACTONE 50 MG TAB PO SCH (09:28)
[2022-08-21] MEDS ORDERED: ALDA50TA2 PO (11:12)
[2022-08-21] MEDS ORDERED: TORS100T PO (11:12)
[2022-08-21] MEDS ORDERED: MIDO10TA PO (11:12)
[2022-08-21] MEDS ORDERED: MULT-90 PO (11:12)
[2022-08-21] MEDS ORDERED: FOLI1TAB11 PO (11:12)
[2022-08-21] MEDS ORDERED: CIPR500T39 PO (11:12)
== END 2022-08-21 09:51 | disposition left against medical advice (07) | DRG 423 ==
LOC: EDBD 13:11 → M ED 14:03 → M ED INP 18:53 → M PCU 22:21
PROVIDERS: ADMIT Internal Medicine; ATTEND Student in an Organized Health Care Education/Training Program
PROC: 0W9G3ZZ Drainage of Peritoneal Cavity, Percutaneous Approach (ICD-10-PCS; 2022-08-14)
PROC: 0JBR0ZZ Excision of Left Foot Subcutaneous Tissue and Fascia, Open Approach (ICD-10-PCS; principal; 2022-08-16)
PROC: 0W9G3ZZ Drainage of Peritoneal Cavity, Percutaneous Approach (ICD-10-PCS; 2022-08-19)
DX: K70.31 Alcoholic cirrhosis of liver with ascites (principal); K76.7 Hepatorenal syndrome; K65.2 Spontaneous bacterial peritonitis; K65.0 Generalized (acute) peritonitis; E87.20 Acidosis, unspecified; K76.6 Portal hypertension; N17.9 Acute kidney failure, unspecified; E87.1 Hypo-osmolality and hyponatremia; K92.2 Gastrointestinal hemorrhage, unspecified; N39.0 Urinary tract infection, site not specified; E11.40 Type 2 diabetes mellitus with diabetic neuropathy, unspecified; I48.91 Unspecified atrial fibrillation; D64.9 Anemia, unspecified; E78.5 Hyperlipidemia, unspecified; K21.9 Gastro-esophageal reflux disease without esophagitis; L84 Corns and callosities; M54.9 Dorsalgia, unspecified; R53.1 Weakness; Z66 Do not resuscitate; E11.621 Type 2 diabetes mellitus with foot ulcer; I27.20 Pulmonary hypertension, unspecified; F10.20 Alcohol dependence, uncomplicated; L97.529 Non-pressure chronic ulcer of other part of left foot with unspecified severity; R00.1 Bradycardia, unspecified; I77.6 Arteritis, unspecified; D89.1 Cryoglobulinemia; N18.9 Chronic kidney disease, unspecified; I12.9 Hypertensive chronic kidney disease with stage 1 through stage 4 chronic kidney disease, or unspecified chronic kidney disease; E87.6 Hypokalemia; D69.6 Thrombocytopenia, unspecified; R29.6 Repeated falls; Z79.82 Long term (current) use of aspirin; M19.90 Unspecified osteoarthritis, unspecified site

== ENCOUNTER 2022-10-12 10:07 | Inpatient (IN) | payer MEDICARE, OTHER ==
[~2022-10-12] VITALS: Ht 180.3 cm; Wt 98.8 kg
[~2022-10-12 10:07] MED LIST changes: +ALDA50TA2 PO; +CIPR500T39 PO; +ECOT81TA5 PO; +FOLI1TAB11 PO; +MIDO10TA PO; +MULT-90 PO; +TORS100T PO
[2022-10-12 11:20] LABS: HEMOGLOBIN 8.2 g/dl (13.5-17.5); MEAN CORPUSCULAR HEMOGLOBIN 32.5 pg (27.0-33.0); MEAN CORPUSCULAR HGB CONC 34.2 g/dl (32.0-36.5); MEAN CORPUSCULAR VOLUME 95.2 fl (80.0-96.0); PLATELET COUNT, AUTOMATED 135 10^3/uL (150-450); RED BLOOD COUNT 2.52 10^6/uL (4.30-6.10); WHITE BLOOD COUNT 23.7 10^3/uL (4.0-10.0)
[2022-10-12 11:38] LABS: ETHYL ALCOHOL (ETHANOL) 0.003 % (0.000-0.010)
[2022-10-12 11:39] LABS: MAGNESIUM LEVEL 1.9 MG/DL (1.8-2.4)
[2022-10-12 11:40] LABS: BILIRUBIN,DIRECT 0.5 MG/DL (<0.4)
[2022-10-12 11:41] LABS: ALBUMIN 1.8 G/DL (3.2-5.2); BILIRUBIN,TOTAL 0.9 MG/DL (0.3-1.2); CALCIUM LEVEL 7.7 MG/DL (8.3-10.6); CREATININE FOR GFR 1.69 MG/DL (0.70-1.30); GLOMERULAR FILTRATION RATE 44.1 (>49); POTASSIUM SERUM 4.5 MMOL/L (3.5-5.1); TOTAL PROTEIN 6.1 G/DL (5.7-8.2)
[2022-10-12 11:51] LABS: INR 1.49; PROTHROMBIN TIME 18.3 SECONDS (12.5-14.5)
[2022-10-12 13:55] LABS: RSV AMPLIFICATION NEGATIVE (NEGATIVE)
[2022-10-12] MEDS ORDERED: cefTRIAXone SOD 1 GM in D5W MINI-BAG PLUS 50 ML IV ONE (15:55)
[2022-10-12] MEDS ORDERED: DOXYCYCLINE HYCLATE 100MG TABLET PO ONE (15:55)
[2022-10-12] MEDS ORDERED: DEXTROSE 50% 50ML SYRINGE IV PRN (16:25)
[2022-10-12] MEDS ORDERED: ACETAMINOPHEN TAB 650MG DOSE (2X325MG) PO PRN (16:25)
[2022-10-12] MEDS ORDERED: VANCOMYCIN HCL 750 MG, VIAL MATE ADAPTER 1 EACH in NS 250 ML IV SCH (16:25)
[2022-10-12] MEDS ORDERED: PIPERACILLIN/TAZOBACTAM SOD 3.375 GM in D5W MINI-BAG PLUS 50 ML IV SCH (16:25)
[2022-10-12] MEDS ORDERED: LORazepam 2 MG TAB PO PRN (16:25)
[2022-10-12] MEDS ORDERED: GLUCOSE 4GM CHEW TABLET PO PRN (16:25)
[2022-10-12] MEDS ORDERED: GLUCAGON INJ 1MG VIAL SC PRN (16:25)
[2022-10-12] MEDS ORDERED: HOME MED LIST COMPLETE! XX SCH (16:50)
[2022-10-12] MEDS ORDERED: UNRESOLVED CLARIFICATION ENTRY XX STA (17:16)
[2022-10-12] MEDS: INSULIN LISPRO (NovoLOG) PER UNIT SC SCH ×2 (17:30→21:00)
[2022-10-12] MEDS: THIAMINE 100 MG TAB PO SCH (17:52)
[2022-10-12] MEDS: TORSEMIDE 20 MG TAB PO SCH (18:37)
[2022-10-12] MEDS ORDERED: VANCOMYCIN HCL 1,000 MG, VIAL MATE ADAPTER 1 EACH in NS 250 ML IV ONE ×2 (19:00→20:00)
[2022-10-12] MEDS ORDERED: VIAL MATE ADAPTER XX ONE (20:40)
[2022-10-12] MEDS: HEPARIN SOD (PORCINE) 5000UNITS/ML 1ML VIAL/SYRINGE SQ SCH (21:00)
[2022-10-12 23:12] VITALS: BP 98/62
[2022-10-12] MEDS: PIPERACILLIN/TAZOBACTAM SOD 4.5 GM in D5W MINI-BAG PLUS 50 ML IV SCH (23:29)
[2022-10-12 23:40] VITALS: BP 106/60
[2022-10-12 23:42] VITALS: BP 106/60
[2022-10-13] VITALS (12 sets, daily range): BP systolic 82–112; BP diastolic 51–67
[2022-10-13] MEDS: PIPERACILLIN/TAZOBACTAM SOD 4.5 GM in D5W MINI-BAG PLUS 50 ML IV SCH ×4 (04:53→21:15)
[2022-10-13 05:43] LABS: MEAN CORPUSCULAR HEMOGLOBIN 32.8 pg (27.0-33.0); MEAN CORPUSCULAR VOLUME 93.7 fl (80.0-96.0); PLATELET COUNT, AUTOMATED 119 10^3/uL (150-450); RED BLOOD COUNT 1.89 10^6/uL (4.30-6.10); WHITE BLOOD COUNT 15.6 10^3/uL (4.0-10.0)
[2022-10-13 05:44] LABS: HEMATOCRIT 17.7 % (42.0-52.0); HEMOGLOBIN 6.2 g/dl (13.5-17.5)
[2022-10-13 06:10] LABS: MAGNESIUM LEVEL 1.8 MG/DL (1.8-2.4)
[2022-10-13 06:14] LABS: ALBUMIN 1.4 G/DL (3.2-5.2); BILIRUBIN,TOTAL 0.4 MG/DL (0.3-1.2); CALCIUM LEVEL 7.3 MG/DL (8.3-10.6); CREATININE FOR GFR 1.63 MG/DL (0.70-1.30); POTASSIUM SERUM 3.9 MMOL/L (3.5-5.1); TOTAL PROTEIN 4.8 G/DL (5.7-8.2)
[2022-10-13] MEDS: INSULIN LISPRO (NovoLOG) PER UNIT SC SCH ×4 (07:30→21:00)
[2022-10-13] MEDS: TORSEMIDE 20 MG TAB PO SCH ×2 (08:03→16:29)
[2022-10-13] MEDS: MULTIVITAMINS/MINERALS THERAP 1 TAB PO SCH (08:03)
[2022-10-13] MEDS: HEPARIN SOD (PORCINE) 5000UNITS/ML 1ML VIAL/SYRINGE SQ SCH ×2 (08:03→21:15)
[2022-10-13] MEDS: FOLIC ACID 1MG TAB PO SCH (08:03)
[2022-10-13] MEDS: MIDODRINE 5 MG TAB PO SCH ×3 (08:03→16:29)
[2022-10-13] MEDS: THIAMINE 100 MG TAB PO SCH ×2 (08:03→21:14)
[2022-10-13 08:21] LABS: HEMOGLOBIN 6.5 g/dl (13.5-17.5)
[2022-10-13] MEDS ORDERED: VANCOMYCIN HCL 750 MG, VIAL MATE ADAPTER 1 EACH in D5W 250 ML IV SCH ×2 (11:00→12:00)
[2022-10-13 15:51] LABS: HEMATOCRIT 23.2 % (42.0-52.0); HEMOGLOBIN 8.1 g/dl (13.5-17.5)
[2022-10-14 04:00] VITALS: BP 106/60
[2022-10-14] MEDS: PIPERACILLIN/TAZOBACTAM SOD 4.5 GM in D5W MINI-BAG PLUS 50 ML IV SCH ×3 (04:04→15:33)
[2022-10-14] MEDS: INSULIN LISPRO (NovoLOG) PER UNIT SC SCH ×2 (07:30→11:10)
[2022-10-14 07:35] LABS: BASO % 0.1 % (0.0-1.0); EOS % 0.2 % (0.0-3.0); HEMATOCRIT 23.1 % (42.0-52.0); HEMOGLOBIN 7.8 g/dl (13.5-17.5); LYMPH # 1.1 10^3/uL (1.5-5.0); LYMPH % 10.6 % (24.0-44.0); MEAN CORPUSCULAR HEMOGLOBIN 31.7 pg (27.0-33.0); MEAN CORPUSCULAR HGB CONC 33.8 g/dl (32.0-36.5); MEAN CORPUSCULAR VOLUME 93.9 fl (80.0-96.0); MONO # 0.8 10^3/uL (0.0-0.8); MONO % 7.5 % (2.0-8.0); NEUTROPHILS # 8.6 10^3/uL (1.5-8.5); NEUTROPHILS % 80.6 % (36.0-66.0); PLATELET COUNT, AUTOMATED 128 10^3/uL (150-450); RED BLOOD COUNT 2.46 10^6/uL (4.30-6.10); WHITE BLOOD COUNT 10.6 10^3/uL (4.0-10.0)
[2022-10-14 07:55] VITALS: BP 98/61
[2022-10-14 07:58] LABS: MAGNESIUM LEVEL 1.6 MG/DL (1.8-2.4)
[2022-10-14 08:08] LABS: ALBUMIN 1.4 G/DL (3.2-5.2); BILIRUBIN,TOTAL 0.8 MG/DL (0.3-1.2); CREATININE FOR GFR 1.59 MG/DL (0.70-1.30); GLOMERULAR FILTRATION RATE 47.4 (>49); POTASSIUM SERUM 3.9 MMOL/L (3.5-5.1)
[2022-10-14] MEDS: HEPARIN SOD (PORCINE) 5000UNITS/ML 1ML VIAL/SYRINGE SQ SCH (08:48)
[2022-10-14] MEDS: MIDODRINE 5 MG TAB PO SCH ×3 (08:48→15:33)
[2022-10-14] MEDS: FOLIC ACID 1MG TAB PO SCH (08:48)
[2022-10-14] MEDS: MULTIVITAMINS/MINERALS THERAP 1 TAB PO SCH (08:49)
[2022-10-14] MEDS: THIAMINE 100 MG TAB PO SCH (08:49)
[2022-10-14] MEDS: TORSEMIDE 20 MG TAB PO SCH (09:52)
[2022-10-14 10:10] VITALS: BP_SYST 109; BP_SYST 112; BP_DIAS 64; BP_DIAS 68
[2022-10-14] MEDS ORDERED: MAGNESIUM OXIDE 400MG TAB (MAG-OX) PO ONE (10:20)
[2022-10-14 11:56] VITALS: BP 120/62
[2022-10-14 13:44] LABS: HEMATOCRIT 27.2 % (42.0-52.0); HEMOGLOBIN 9.2 g/dl (13.5-17.5)
[2022-10-14] MEDS ORDERED: VANCOMYCIN HCL 1,000 MG, VIAL MATE ADAPTER 1 EACH in D5W 250 ML IV SCH (14:00)
[2022-10-14] MEDS ORDERED: TORS20TA2 PO (15:06)
[2022-10-14] MEDS ORDERED: MIDO5TA PO (15:06)
[2022-10-14] MEDS ORDERED: VITMTA PO (15:06)
[2022-10-14] MEDS ORDERED: THIA100TA PO (15:06)
[2022-10-14] MEDS ORDERED: FOLI1TAB11 PO (15:06)
[2022-10-14 16:00] VITALS: BP 124/63
== END 2022-10-14 17:11 | disposition home health service (06) | DRG 312 ==
LOC: M ED 10:07 → M ED INP 16:22 → M PCU 22:43
PROVIDERS: ADMIT Family Medicine; ATTEND Family Medicine
PROC: 30233N1 Transfusion of Nonautologous Red Blood Cells into Peripheral Vein, Percutaneous Approach (ICD-10-PCS; principal; 2022-10-13)
DX: I95.1 Orthostatic hypotension (principal); J18.9 Pneumonia, unspecified organism; L97.429 Non-pressure chronic ulcer of left heel and midfoot with unspecified severity; I48.91 Unspecified atrial fibrillation; D64.9 Anemia, unspecified; K70.30 Alcoholic cirrhosis of liver without ascites; E11.22 Type 2 diabetes mellitus with diabetic chronic kidney disease; L97.519 Non-pressure chronic ulcer of other part of right foot with unspecified severity; E11.621 Type 2 diabetes mellitus with foot ulcer; F10.20 Alcohol dependence, uncomplicated; Z79.82 Long term (current) use of aspirin; Z79.899 Other long term (current) drug therapy; Z91.119 Patient's noncompliance with dietary regimen due to unspecified reason

== ENCOUNTER 2022-10-15 13:23 | Inpatient (IN) | payer OTHER ==
[~2022-10-15] VITALS: Ht 182.9 cm; Wt 99.4 kg
[~2022-10-15 13:23] MED LIST changes: +MIDO5TA PO; +THIA100TA PO; +TORS20TA2 PO; +VITMTA PO
[2022-10-15 17:20] VITALS: BP 134/77
[2022-10-15] MEDS ORDERED: GLUCAGON INJ 1MG VIAL SC PRN (17:25)
[2022-10-15] MEDS ORDERED: GLUCOSE 4GM CHEW TABLET PO PRN (17:25)
[2022-10-15] MEDS ORDERED: LORazepam 2 MG TAB PO PRN (17:25)
[2022-10-15] MEDS ORDERED: ACETAMINOPHEN TAB 650MG DOSE (2X325MG) PO PRN (17:25)
[2022-10-15] MEDS ORDERED: DEXTROSE 50% 50ML SYRINGE IV PRN (17:25)
[2022-10-15] MEDS: INSULIN LISPRO (NovoLOG) PER UNIT SC SCH ×2 (18:47→22:09)
[2022-10-15] MEDS: TORSEMIDE 20 MG TAB PO SCH (18:55)
[2022-10-15] MEDS: THIAMINE 100 MG TAB PO SCH (18:55)
[2022-10-15] MEDS: FOLIC ACID 1MG TAB PO SCH (18:55)
[2022-10-15] MEDS: ceFAZolin SOD 1 GM in D5W MINI-BAG PLUS 50 ML IV SCH (18:55)
[2022-10-15] MEDS: MULTIVITAMINS/MINERALS THERAP 1 TAB PO SCH (18:55)
[2022-10-15 22:00] VITALS: BP 117/76
[2022-10-15] MEDS: HEPARIN SOD (PORCINE) 5000UNITS/ML 1ML VIAL/SYRINGE SC SCH (22:40)
[2022-10-16 00:51] VITALS: BP 119/71
[2022-10-16] MEDS: ceFAZolin SOD 1 GM in D5W MINI-BAG PLUS 50 ML IV SCH (02:06)
[2022-10-16 04:40] VITALS: BP 107/65
[2022-10-16] MEDS: HEPARIN SOD (PORCINE) 5000UNITS/ML 1ML VIAL/SYRINGE SC SCH ×3 (05:57→22:00)
[2022-10-16 06:11] LABS: HEMATOCRIT 24.2 % (42.0-52.0); HEMOGLOBIN 8.2 g/dl (13.5-17.5); MEAN CORPUSCULAR HEMOGLOBIN 31.8 pg (27.0-33.0); MEAN CORPUSCULAR HGB CONC 33.9 g/dl (32.0-36.5); MEAN CORPUSCULAR VOLUME 93.8 fl (80.0-96.0); PLATELET COUNT, AUTOMATED 156 10^3/uL (150-450); RED BLOOD COUNT 2.58 10^6/uL (4.30-6.10); WHITE BLOOD COUNT 9.6 10^3/uL (4.0-10.0)
[2022-10-16 06:41] LABS: MAGNESIUM LEVEL 1.5 MG/DL (1.8-2.4)
[2022-10-16 06:50] LABS: ALBUMIN 1.6 G/DL (3.2-5.2); BILIRUBIN,TOTAL 0.5 MG/DL (0.3-1.2); CALCIUM LEVEL 7.4 MG/DL (8.3-10.6); CREATININE FOR GFR 1.51 MG/DL (0.70-1.30); GLOMERULAR FILTRATION RATE 50.3 (>49); POTASSIUM SERUM 3.5 MMOL/L (3.5-5.1); TOTAL PROTEIN 5.9 G/DL (5.7-8.2)
[2022-10-16] MEDS: INSULIN LISPRO (NovoLOG) PER UNIT SC SCH ×4 (07:30→22:06)
[2022-10-16 07:55] LABS: C REACTIVE PROTEIN QUANTITATIV 6.7 MG/DL (<1.0)
[2022-10-16] MEDS ORDERED: MAGNESIUM OXIDE 400MG TAB (MAG-OX) PO ONE (08:00)
[2022-10-16] MEDS ORDERED: ceFAZolin SOD 2 GM in IV 1 EA IV SCH (08:00)
[2022-10-16 08:32] LABS: ERYTHROCYTE SEDIMENTATION RATE 62 mm/hr (0-20)
[2022-10-16] MEDS: MULTIVITAMINS/MINERALS THERAP 1 TAB PO SCH (08:58)
[2022-10-16] MEDS: THIAMINE 100 MG TAB PO SCH ×2 (08:58→21:58)
[2022-10-16] MEDS: FOLIC ACID 1MG TAB PO SCH (08:58)
[2022-10-16] MEDS: MIDODRINE 5 MG TAB PO SCH ×3 (08:58→16:03)
[2022-10-16 14:00] VITALS: BP 114/69
[2022-10-16] MEDS ORDERED: propofoL 200 MG/20 ML VIAL As Ordered ONE ×3 (14:18→18:52)
[2022-10-16] MEDS ORDERED: ACETAMINOPHEN 1000MG 100ML IV BAG As Ordered ONE (14:19)
[2022-10-16] MEDS ORDERED: ONDANSETRON 4MG 2ML VIAL As Ordered ONE (14:25)
[2022-10-16 16:04] VITALS: BP 113/65
[2022-10-16] MEDS ORDERED: BUPIVACAINE HCL 0.5% 30ML VIAL As Ordered ONE (16:35)
[2022-10-16] MEDS ORDERED: CETACAINE SPRAY 5GM As Ordered ONE (16:35)
[2022-10-16] MEDS ORDERED: LIDOCAINE 2% MDV 20ML VIAL As Ordered ONE (16:35)
[2022-10-16] MEDS ORDERED: ROPIvacaine 0.5% 30ML VIAL As Ordered ONE (16:40)
[2022-10-16] MEDS ORDERED: MIDAZOLAM INJ 2MG/2ML VIAL As Ordered ONE (16:44)
[2022-10-16] MEDS ORDERED: fentaNYL 100 MCG/2 ML INJECTION As Ordered ONE (16:44)
[2022-10-16] MEDS ORDERED: LIDOCAINE 2% 100MG/5ML SDV (FOR ANES.) As Ordered ONE (16:45)
[2022-10-16] MEDS ORDERED: PIPERACILLIN/TAZOBACTAM SOD 3.375 GM in D5W MINI-BAG PLUS 50 ML IV SCH (17:00)
[2022-10-16] MEDS ORDERED: ceFAZolin 2 GM/D5W 50 ML IV BAG As Ordered ONE (17:19)
[2022-10-16] MEDS ORDERED: PHENYLephrine 500MCG 5ML (100MCG/ML) SYRINGE As Ordered ONE (17:44)
[2022-10-16] MEDS ORDERED: GENTAMICIN SULF 80MG/2ML VIAL As Ordered ONE ×3 (17:56→19:12)
[2022-10-16] MEDS ORDERED: fentaNYL 100 MCG/2 ML INJECTION IV PRN (19:35)
[2022-10-16] MEDS ORDERED: HYDROMORPHONE HCL 0.5 MG/ 0.5 ML SYRINGE IV PRN (19:35)
[2022-10-16] MEDS ORDERED: oxyCODONE 5MG TAB PO PRN (19:35)
[2022-10-16] MEDS ORDERED: ONDANSETRON 4MG 2ML VIAL IV PRN (19:35)
[2022-10-16] MEDS ORDERED: LR 1,000 ML IV SCH (19:35)
[2022-10-16] MEDS ORDERED: PERCOCET 5MG/325MG TAB PO PRN (20:20)
[2022-10-16] MEDS: PERCOCET 5MG/325MG TAB PO PRN (21:59)
[2022-10-16 22:00] VITALS: BP_SYST 108; BP_DIAS 63; BP_DIAS 83
[2022-10-16] MEDS: PIPERACILLIN/TAZOBACTAM SOD 3.375 GM in D5W MINI-BAG PLUS 50 ML IV SCH (22:00)
[2022-10-17] VITALS (9 sets, daily range): BP systolic 88–105; BP diastolic 34–72
[2022-10-17] MEDS: PIPERACILLIN/TAZOBACTAM SOD 3.375 GM in D5W MINI-BAG PLUS 50 ML IV SCH ×4 (01:48→20:29)
[2022-10-17] MEDS: HEPARIN SOD (PORCINE) 5000UNITS/ML 1ML VIAL/SYRINGE SC SCH ×3 (05:15→20:30)
[2022-10-17 06:11] LABS: BASO % 0.2 % (0.0-1.0); EOS # 0.1 10^3/uL (0.0-0.5); LYMPH # 1.3 10^3/uL (1.5-5.0); LYMPH % 15.4 % (24.0-44.0); MEAN CORPUSCULAR HGB CONC 33.7 g/dl (32.0-36.5); MONO # 0.6 10^3/uL (0.0-0.8); MONO % 7.7 % (2.0-8.0); NEUTROPHILS # 6.2 10^3/uL (1.5-8.5); NEUTROPHILS % 74.6 % (36.0-66.0); PLATELET COUNT, AUTOMATED 176 10^3/uL (150-450); RED BLOOD COUNT 2.19 10^6/uL (4.30-6.10); WHITE BLOOD COUNT 8.3 10^3/uL (4.0-10.0)
[2022-10-17 06:16] LABS: HEMATOCRIT 20.8 % (42.0-52.0)
[2022-10-17 06:31] LABS: MAGNESIUM LEVEL 1.6 MG/DL (1.8-2.4)
[2022-10-17 06:48] LABS: ALBUMIN 1.4 G/DL (3.2-5.2); BILIRUBIN,TOTAL 0.3 MG/DL (0.3-1.2); CALCIUM LEVEL 7.1 MG/DL (8.3-10.6); CREATININE FOR GFR 1.31 MG/DL (0.70-1.30); GLOMERULAR FILTRATION RATE 59.2 (>49); POTASSIUM SERUM 3.9 MMOL/L (3.5-5.1); TOTAL PROTEIN 5.2 G/DL (5.7-8.2)
[2022-10-17] MEDS: INSULIN LISPRO (NovoLOG) PER UNIT SC SCH ×4 (07:30→21:00)
[2022-10-17] MEDS ORDERED: MAGNESIUM OXIDE 400MG TAB (MAG-OX) PO ONE (09:00)
[2022-10-17] MEDS: TORSEMIDE 20 MG TAB PO SCH ×4 (09:00→17:29)
[2022-10-17] MEDS: MIDODRINE 5 MG TAB PO SCH ×3 (09:25→17:29)
[2022-10-17] MEDS: THIAMINE 100 MG TAB PO SCH ×2 (09:25→20:29)
[2022-10-17] MEDS: FOLIC ACID 1MG TAB PO SCH (09:25)
[2022-10-17] MEDS: MULTIVITAMINS/MINERALS THERAP 1 TAB PO SCH (09:25)
[2022-10-17 12:03] LABS: HEMATOCRIT 21.5 % (42.0-52.0); HEMOGLOBIN 7.2 g/dl (13.5-17.5)
[2022-10-17] MEDS ORDERED: HOME MED LIST COMPLETE! XX SCH (16:20)
[2022-10-18] MEDS: PIPERACILLIN/TAZOBACTAM SOD 3.375 GM in D5W MINI-BAG PLUS 50 ML IV SCH ×2 (02:25→09:36)
[2022-10-18] MEDS: PERCOCET 5MG/325MG TAB PO PRN (02:38)
[2022-10-18] MEDS: HEPARIN SOD (PORCINE) 5000UNITS/ML 1ML VIAL/SYRINGE SC SCH (05:29)
[2022-10-18 06:00] VITALS: BP 103/67
[2022-10-18 06:21] LABS: BASO % 0.6 % (0.0-1.0); EOS # 0.1 10^3/uL (0.0-0.5); EOS % 0.8 % (0.0-3.0); LYMPH # 1.5 10^3/uL (1.5-5.0); LYMPH % 20.6 % (24.0-44.0); MEAN CORPUSCULAR HEMOGLOBIN 32.1 pg (27.0-33.0); MEAN CORPUSCULAR HGB CONC 34.2 g/dl (32.0-36.5); MEAN CORPUSCULAR VOLUME 93.8 fl (80.0-96.0); MONO # 0.7 10^3/uL (0.0-0.8); MONO % 10.2 % (2.0-8.0); NEUTROPHILS # 4.9 10^3/uL (1.5-8.5); NEUTROPHILS % 67.1 % (36.0-66.0); PLATELET COUNT, AUTOMATED 181 10^3/uL (150-450); RED BLOOD COUNT 2.09 10^6/uL (4.30-6.10); WHITE BLOOD COUNT 7.3 10^3/uL (4.0-10.0)
[2022-10-18 06:27] LABS: HEMATOCRIT 19.6 % (42.0-52.0); HEMOGLOBIN 6.7 g/dl (13.5-17.5)
[2022-10-18 06:35] LABS: MAGNESIUM LEVEL 1.7 MG/DL (1.8-2.4)
[2022-10-18 06:36] LABS: ALBUMIN 1.4 G/DL (3.2-5.2); ALKALINE PHOSPHATASE 129 U/L (46-116); ALT/SGPT 11 U/L (7.0-40); AST/SGOT 40 U/L (<34); BILIRUBIN,TOTAL 0.4 MG/DL (0.3-1.2); BLOOD UREA NITROGEN 25 MG/DL (9-23); CALCIUM LEVEL 7.1 MG/DL (8.3-10.6); CARBON DIOXIDE LEVEL 22 MMOL/L (20-31); CHLORIDE LEVEL 103 MMOL/L (98-107); CREATININE FOR GFR 1.24 MG/DL (0.70-1.30); GLOMERULAR FILTRATION RATE > 60.0 (>49); GLUCOSE, FASTING 78 MG/DL (74-106); POTASSIUM SERUM 3.8 MMOL/L (3.5-5.1); SODIUM LEVEL 133 MMOL/L (136-145); TOTAL PROTEIN 5.4 G/DL (5.7-8.2)
[2022-10-18] MEDS: INSULIN LISPRO (NovoLOG) PER UNIT SC SCH (08:33)
[2022-10-18] MEDS: TORSEMIDE 20 MG TAB PO SCH (09:00)
[2022-10-18] MEDS: MULTIVITAMINS/MINERALS THERAP 1 TAB PO SCH (09:00)
[2022-10-18] MEDS: FOLIC ACID 1MG TAB PO SCH (09:00)
[2022-10-18] MEDS: THIAMINE 100 MG TAB PO SCH (09:00)
[2022-10-18] MEDS: MIDODRINE 5 MG TAB PO SCH (09:36)
== END 2022-10-18 09:50 | disposition left against medical advice (07) | DRG 616 ==
LOC: M MSPAV 17:26
PROVIDERS: ADMIT Internal Medicine; ATTEND Family Medicine
PROC: 0KBV0ZX Excision of Right Foot Muscle, Open Approach, Diagnostic (ICD-10-PCS; 2022-10-16)
PROC: 0QBM0ZZ Excision of Left Tarsal, Open Approach (ICD-10-PCS; 2022-10-16)
PROC: B246ZZ4 Ultrasonography of Right and Left Heart, Transesophageal (ICD-10-PCS; 2022-10-16)
PROC: 0Y6X0Z0 Detachment at Right 5th Toe, Complete, Open Approach (ICD-10-PCS; principal; 2022-10-16 15:00)
PROC: 0QBL0ZZ Excision of Right Tarsal, Open Approach (ICD-10-PCS; 2022-10-16 15:00)
DX: E11.621 Type 2 diabetes mellitus with foot ulcer (principal); L89.614 Pressure ulcer of right heel, stage 4; L89.624 Pressure ulcer of left heel, stage 4; R78.81 Bacteremia; E11.69 Type 2 diabetes mellitus with other specified complication; I48.91 Unspecified atrial fibrillation; K70.30 Alcoholic cirrhosis of liver without ascites; F10.20 Alcohol dependence, uncomplicated; I95.1 Orthostatic hypotension; D64.9 Anemia, unspecified; Z79.899 Other long term (current) drug therapy; E11.40 Type 2 diabetes mellitus with diabetic neuropathy, unspecified; Z91.119 Patient's noncompliance with dietary regimen due to unspecified reason; E11.22 Type 2 diabetes mellitus with diabetic chronic kidney disease

== ENCOUNTER 2022-11-09 16:49 | Observation (INO) | payer OTHER ==
[~2022-11-09] VITALS: Ht 182.9 cm; Wt 79.9 kg
[2022-11-09] MEDS ORDERED: MORPHINE 2 MG/ML 1ML VIAL IV ONE (17:40)
[2022-11-09] MEDS ORDERED: SCOPOLAMINE 1MG TRANSDERMAL PATCH TOP PRN (17:50)
[2022-11-09] MEDS ORDERED: LORazepam 2 MG/ML 1ML VIAL IV PRN (17:50)
[2022-11-09] MEDS ORDERED: MORPHINE 2 MG/ML 1ML VIAL IV PRN (17:50)
[2022-11-09 18:09] LABS: RSV AMPLIFICATION NEGATIVE (NEGATIVE)
[2022-11-09] MEDS ORDERED: HOME MED LIST COMPLETE! XX SCH (19:40)
== END 2022-11-10 17:55 | disposition expired ==
LOC: M ED 16:49 → EDBD 16:49 → M ED INP 17:51 → M MS5PR 23:00
PROVIDERS: ADMIT Internal Medicine; ATTEND Internal Medicine
DX: F10.10 Alcohol abuse, uncomplicated (principal); R65.21 Severe sepsis with septic shock; Z51.5 Encounter for palliative care; B95.61 Methicillin susceptible Staphylococcus aureus infection as the cause of diseases classified elsewhere; J18.9 Pneumonia, unspecified organism; K74.69 Other cirrhosis of liver; E11.621 Type 2 diabetes mellitus with foot ulcer; I48.91 Unspecified atrial fibrillation; R55 Syncope and collapse; Z91.199 Patient's noncompliance with other medical treatment and regimen due to unspecified reason
CPT/HCPCS: 87631; 96374; 96375; 99284; G0378; J2060; J2270